=== PATIENT | male | born 1960 | race Caucasian/White ===

== ENCOUNTER 2022-01-01 11:30 | Outpatient (REF) | payer BC, SELFPAY ==
[2022-01-01 12:03] LABS: MANUAL DIFF FLAG NO
[2022-01-01 12:52] LABS: Basophils Absolute Auto 0.1 X10*3/uL (0.0-0.2); Basophils Percent Auto 0.6 % (0-2); Eosinophils Absolute Auto 0.2 X10*3/uL (0.0-0.4); Eosinophils Percent Auto 1.8 % (0-4); Hematocrit 42.9 % (42.0-52.0); Hemoglobin 14.4 g/dl (14.0-18.0); Imm Gran Abs Auto 0.02 X10*3/uL (0.00-0.03); Imm Gran Pct Auto 0.2 % (0.0-0.4); Lymphocytes Absolute Auto 2.5 X10*3/uL (1.2-4.9); Lymphocytes Percent Auto 30.3 % (20-40); Mean Corpuscular HGB Conc 33.6 g/dl (31.0-36.0); Mean Corpuscular Hemoglobin 28.7 pg (27.0-33.0); Mean Corpuscular Volume 85.5 fL (80.0-98.0); Mean Platelet Volume 10.9 fL (9.4-12.4); Monocytes Absolute Auto 0.6 X10*3/uL (0.1-1.2); Monocytes Percent Auto 7.4 % (2-11); Neutrophils Absolute Auto 4.9 x10*3/uL (2.0-8.3); Neutrophils Percent Auto 59.7 % (45-73); Platelet Count 231 X10*3/uL (160-400); Red Blood Count 5.02 X10*6/uL (4.60-5.80); Red Cell Distribution Width 13.3 % (11.0-16.0); White Blood Count 8.2 X10*3/uL (4.8-10.8)
[2022-01-01 13:07] LABS: Estimated Average Glucose 117 mg/dL; Hemoglobin A1C 149.4743 umol/L; Hemoglobin A1c % 5.7 %
[2022-01-01 13:10] LABS: Glucose Fasting 99 mg/dL (60-99)
[2022-01-01 13:39] LABS: Free T4 (Free Thyroxine) 0.92 ng/dL (0.71-1.85); Thyroid Stimulating Hormone 1.33 uIU/mL (0.32-4.0)
[2022-01-01 14:20] LABS: Folate 6.2 ng/mL (> or = 4.0); Vitamin B12 439 pg/mL (200-900)
[2022-01-03 22:27] LABS: Triiodothyronine T3 Total 104 ng/dL (76-181)
== END 2022-01-01 11:31 | disposition home or self-care (01) ==
LOC: HO.LAB 11:30
PROVIDERS: PCP Internal Medicine Medical Oncology; Visit Provider Podiatrist
DX: M79.673 Pain in unspecified foot (principal); R20.8 Other disturbances of skin sensation
CPT/HCPCS: 36415; 82607; 82746; 82947; 83036; 84439; 84443; 84480; 85025

== ENCOUNTER 2022-08-08 11:30 | Day surgery (SDC) | payer BC, SELFPAY ==
[2022-08-08 12:33] VITALS: BMI 29.0
--- NOTE | 2022-08-08 14:03 | MHC.SHP ---
Pre-Procedural Eval Section A Date of Service: 08/08/22 The patient is an INPATIENT: No Changes since office visit: No Cold of Flu in the past 2 weeks, No New Medical Problems, No Changes in Medication and No Patient answered all questions The History & Physical has been completed within 30 days and I have reviewed it.: Yes Section B Chief Complaint: Trigger finger, left middle finger Allergies: Allergies Allergy/AdvReac Type Severity Reaction Status Date / Time No Known Allergies Allergy Verified 06/18/22 14:31 Plan I have reviewed the history and physical and performed a pertinent physical examination on my patient. No changes have occurred unless specified. Time Spent With Patient Time: Total time managing care of this patient today ____ minutes.
--- NOTE | 2022-08-08 14:03 | W.PM.OPN ---
Operative Note Operative Note Date of Service: 08/08/22 Narrative: Operative Note Preop diagnosis: 1. left middle finger Trigger finger Postop diagnosis: 1. left middle finger Trigger finger Procedure: 1. left middle finger A1 candi release Surgeon: Karen Pedraza MD Anesthesia: local block using 1% lidocaine with epinephrine Findings: No locking or catching after A1 candi release EBL: Less than 5 mL Tourniquet time: None Specimens: None Complications: None Disposition: Brought to recovery room in stable condition Plan: Follow-up for 10-14 days for wound check and suture removal Indications: The patient is 61 years old, with a left middle finger trigger finger that has been unresponsive to nonoperative management. The risks and benefits of operative treatment including but not limited to risk of damage to blood vessels, nerves, tendons, infection, persistent pain, persistent symptoms, recurrence or possible need for additional surgery were discussed with the patient and the patient wishes to proceed with surgery. Procedure: Once consent was obtained a local block was performed in the preop area using a combination of 1% lidocaine with epinephrine. The patient was then brought back to the operating suite and placed on the operative table in supine position. The left upper extremity was prepped and draped in a standard surgical fashion. Once assured that we had a good block, a 1.5 cm oblique incision was made centered over the A1 candi of the left middle finger . The incision was made through the skin to the subcutaneous tissues using a #15 blade. Careful dissection was made down to the level of the A1 candi using tenotomy scissors, with care being taken to protect the nearby neurovascular structures. A longitudinal incision was made in the A1 candi 1st using a #15 blade, then using tenotomy scissors under direct visualization. The A1 candi was noted to be thickened. Following our A1 candi release, we no longer saw any locking or catching of the digit with flexion and extension. Once satisfied with our A1 candi release the wound was copiously irrigated with normal saline and hemostasis was obtained with a brief period of local pressure. The skin edges were reapproximated with some 5.0 nylon suture material and a sterile dressing was applied. The patient appears to have tolerated the procedure well and with no complications. All digits were well vascularized at the conclusion of the case.
[2022-08-08 14:25] VITALS: BP 130/83; PULSE 69; RESP 16; TEMP 36.3; O2SAT 98
== END 2022-08-08 14:39 | disposition home or self-care (01) ==
PROVIDERS: PCP Internal Medicine Medical Oncology; Visit Provider Orthopaedic Surgery
PROC: (CPT 26055; principal; 2022-08-08 13:40)
DX: M65.332 Trigger finger, left middle finger (principal)
CPT/HCPCS: 26055; J0171

== ENCOUNTER → 2022-08-21 15:02 | Outpatient (BNVA) | payer BC, SELFPAY | PROVIDERS: PCP Internal Medicine Medical Oncology; Visit Provider Orthopaedic Surgery | DX: Z13.89 Encounter for screening for other disorder (principal) ==

== ENCOUNTER 2022-11-20 06:27 | Outpatient (REF) | payer BC, SELFPAY ==
--- NOTE | ~2022-11-20 | XR_ITS ---
EXAMINATION: XR SHOULDER, RIGHT CLINICAL INFORMATION: Pain COMPARISON: Previous x-ray March 2015 TECHNIQUE: Three views of the right shoulder. FINDINGS: Bone alignment is normal. No fracture or dislocation. Normal glenohumeral joint. Arthritis at the acromioclavicular joint. Normal soft tissues. XR/XR shoulder RT min 2V IMPRESSION: Arthritis at the acromioclavicular joint.
== END 2022-11-20 06:28 | disposition home or self-care (01) ==
LOC: HO.HOSX 06:27
PROVIDERS: Visit Provider Physician Assistant
DX: M75.81 Other shoulder lesions, right shoulder (principal)
CPT/HCPCS: 20610; 73030; J1040

== ENCOUNTER 2022-12-25 13:56 | Outpatient (REF) | payer BC, SELFPAY ==
[2022-12-25 14:15] LABS: MANUAL DIFF FLAG NO
[2022-12-25 14:51] LABS: Basophils Percent Auto 0.4 % (0-2); Eosinophils Percent Auto 0.8 % (0-4); Hematocrit 48.1 % (42.0-52.0); Hemoglobin 16.6 g/dl (14.0-18.0); Imm Gran Abs Auto 0.01 X10*3/uL (0.00-0.03); Imm Gran Pct Auto 0.2 % (0.0-0.4); Lymphocytes Absolute Auto 1.4 X10*3/uL (1.2-4.9); Lymphocytes Percent Auto 27.5 % (20-40); Mean Corpuscular HGB Conc 34.5 g/dl (31.0-36.0); Mean Corpuscular Hemoglobin 28.1 pg (27.0-33.0); Mean Corpuscular Volume 81.4 fL (80.0-98.0); Mean Platelet Volume 11.1 fL (9.4-12.4); Monocytes Absolute Auto 0.5 X10*3/uL (0.1-1.2); Monocytes Percent Auto 10.7 % (2-11); Neutrophils Absolute Auto 3.1 x10*3/uL (2.0-8.3); Neutrophils Percent Auto 60.4 % (45-73); Platelet Count 179 X10*3/uL (160-400); Red Blood Count 5.91 X10*6/uL (4.60-5.80); White Blood Count 5.1 X10*3/uL (4.8-10.8)
[2022-12-25 15:15] LABS: Monotest Negative (Negative)
[2022-12-25 15:41] LABS: Alanine Aminotransferase 60 U/L (0-40); Albumin Level 4.4 g/dL (3.5-5.0); Alkaline Phosphatase 105 U/L (39-117); Anion Gap 16 (12-20); Aspartate Amino Transferase 56 U/L (5-37); Blood Urea Nitrogen 14 mg/dL (9-16); Calcium 9.7 mg/dL (8.4-10.2); Carbon Dioxide 27 mmol/L (22-29); Chloride 97 mmol/L (96-108); Estimated Glomerular Filt Rate > 60; Glucose Random 167 mg/dL (60-115); Potassium 4.2 mmol/L (3.3-5.1); Sodium 136 mmol/L (135-145); Total Protein 7.5 g/dL (6.5-8.0)
[2022-12-27 07:49] LABS: HIV AB/AG Nonreactive (Nonreactive); HIV Num 1 0.06 S/CO (0.00-0.99)
[2022-12-27 09:14] LABS: Rubella IgM Antibody <20.00 AU/mL
[2022-12-31 12:08] LABS: Rubeola IgM (Measles) <1:20 titer
== END 2022-12-25 13:57 | disposition home or self-care (01) ==
LOC: HO.LAB 13:56
PROVIDERS: PCP Internal Medicine Medical Oncology; Visit Provider Internal Medicine Medical Oncology
DX: Z11.4 Encounter for screening for human immunodeficiency virus [HIV] (principal); J02.9 Acute pharyngitis, unspecified; R21 Rash and other nonspecific skin eruption; B34.9 Viral infection, unspecified
CPT/HCPCS: 36415; 80053; 85025; 86308; 86735; 86762; 86765; 87070; 87389

== ENCOUNTER 2023-01-01 11:20 | Outpatient (REF) | payer BC, SELFPAY ==
[2023-01-01 13:16] LABS: MANUAL DIFF FLAG NO
[2023-01-01 13:28] LABS: Basophils Absolute Auto 0.1 X10*3/uL (0.0-0.2); Basophils Percent Auto 0.7 % (0-2); Eosinophils Absolute Auto 0.1 X10*3/uL (0.0-0.4); Eosinophils Percent Auto 1.3 % (0-4); Hematocrit 39.8 % (42.0-52.0); Hemoglobin 13.1 g/dl (14.0-18.0); Imm Gran Abs Auto 0.08 X10*3/uL (0.00-0.03); Imm Gran Pct Auto 0.9 % (0.0-0.4); Lymphocytes Absolute Auto 1.9 X10*3/uL (1.2-4.9); Lymphocytes Percent Auto 21.6 % (20-40); Mean Corpuscular HGB Conc 32.9 g/dl (31.0-36.0); Mean Corpuscular Hemoglobin 28.1 pg (27.0-33.0); Mean Corpuscular Volume 85.4 fL (80.0-98.0); Mean Platelet Volume 9.6 fL (9.4-12.4); Monocytes Absolute Auto 1.2 X10*3/uL (0.1-1.2); Monocytes Percent Auto 13.3 % (2-11); Neutrophils Absolute Auto 5.5 x10*3/uL (2.0-8.3); Neutrophils Percent Auto 62.2 % (45-73); Red Blood Count 4.66 X10*6/uL (4.60-5.80); Red Cell Distribution Width 13.7 % (11.0-16.0); White Blood Count 8.8 X10*3/uL (4.8-10.8)
[2023-01-01 13:40] LABS: Carbon Dioxide 27 mmol/L (22-29)
[2023-01-01 13:43] LABS: Alanine Aminotransferase 37 U/L (0-40); Alkaline Phosphatase 75 U/L (39-117); Anion Gap 11 (12-20); Aspartate Amino Transferase 28 U/L (5-37); Bilirubin Total 0.8 mg/dL (0.0-1.0); Blood Urea Nitrogen 16 mg/dL (9-16); Calcium 9.1 mg/dL (8.4-10.2); Chloride 108 mmol/L (96-108); Estimated Glomerular Filt Rate > 60; Glucose Random 108 mg/dL (60-115); Platelet Count 627 X10*3/uL (160-400); Potassium 4.3 mmol/L (3.3-5.1); Sodium 142 mmol/L (135-145); Total Protein 7.1 g/dL (6.5-8.0)
[2023-01-01 13:55] LABS: Lactate Dehydrogenase 260 U/L (118-273); Syphilis Screen Nonreactive (Nonreactive)
[2023-01-01 14:14] LABS: Erythrocyte Sedimentation Rate 15 MM/HR (0-15)
[2023-01-09 02:19] LABS: Lyme Abs Screen <0.90 index
== END 2023-01-01 11:21 | disposition home or self-care (01) ==
LOC: HO.10HDL 11:20
PROVIDERS: Visit Provider Internal Medicine Medical Oncology
DX: R61 Generalized hyperhidrosis (principal); M79.10 Myalgia, unspecified site
CPT/HCPCS: 36415; 80053; 82550; 83615; 85025; 85652; 86617; 86618; 86780

== ENCOUNTER → 2023-01-07 12:50 | Outpatient (BNVA) | payer BC, SELFPAY | PROVIDERS: PCP Internal Medicine Medical Oncology; Visit Provider Orthopaedic Surgery ==

== ENCOUNTER 2023-01-10 08:14 | Outpatient (REF) | payer BC, SELFPAY ==
[2023-01-10 09:20] LABS: Erythrocyte Sedimentation Rate 10 MM/HR (0-15)
[2023-01-10 09:37] LABS: Thyroid Stimulating Hormone 2.11 uIU/mL (0.32-4.0); Vitamin D 25-OH Total 19.9 ng/mL (>30)
[2023-01-10 10:26] LABS: Cortisol Random 11.2 ug/dL
[2023-01-13 17:44] LABS: Anti Nuclear Antibody Screen NEGATIVE (NEGATIVE)
== END 2023-01-10 08:15 | disposition home or self-care (01) ==
LOC: HO.LAB 08:14
PROVIDERS: PCP Internal Medicine Medical Oncology; Visit Provider Internal Medicine Medical Oncology
DX: R61 Generalized hyperhidrosis (principal); M79.10 Myalgia, unspecified site; R53.83 Other fatigue
CPT/HCPCS: 36415; 82306; 82533; 84439; 84443; 85652; 86038

== ENCOUNTER 2023-01-23 09:10 | Day surgery (SDC) | payer BC, SELFPAY ==
[2023-01-23 09:27] VITALS: BP 128/80; PULSE 74; RESP 16; TEMP 36.3; O2SAT 97; BMI 28.7
--- NOTE | 2023-01-23 11:32 | MHC.SHP ---
Pre-Procedural Eval Section A Date of Service: 01/23/23 The patient is an INPATIENT: No Changes since office visit: No Cold of Flu in the past 2 weeks, No New Medical Problems, No Changes in Medication and No Patient answered all questions The History & Physical has been completed within 30 days and I have reviewed it.: Yes Section B Chief Complaint: Trigger finger, right middle finger Allergies: Allergies Allergy/AdvReac Type Severity Reaction Status Date / Time No Known Allergies Allergy Verified 01/07/23 13:20 Plan I have reviewed the history and physical and performed a pertinent physical examination on my patient. No changes have occurred unless specified. Time Spent With Patient Time: Total time managing care of this patient today ____ minutes.
--- NOTE | 2023-01-23 11:33 | W.PM.OPN ---
Operative Note Operative Note Date of Service: 01/23/23 Narrative: Operative Note Preop diagnosis: 1. Right middle finger Trigger finger Postop diagnosis: 1. Right middle finger Trigger finger Procedure: 1. Right middle finger A1 candi release Surgeon: Karen Pedraza MD Anesthesia: local block using 1% lidocaine with epinephrine Findings: No locking or catching of the right middle finger after A1 candi release. However, he did have some locking of the right ring finger. EBL: Less than 5 mL Tourniquet time: None Specimens: None Complications: None Disposition: Brought to recovery room in stable condition Plan: Follow-up for 10-14 days for wound check and suture removal Indications: The patient is 62 years old, with a right middle finger trigger finger that has been unresponsive to nonoperative management. The risks and benefits of operative treatment including but not limited to risk of damage to blood vessels, nerves, tendons, infection, persistent pain, persistent symptoms, recurrence or possible need for additional surgery were discussed with the patient and the patient wishes to proceed with surgery. Procedure: Once consent was obtained a local block was performed in the preop area using a combination of 1% lidocaine with epinephrine. The patient was then brought back to the operating suite and placed on the operative table in supine position. The right upper extremity was prepped and draped in a standard surgical fashion. Once assured that we had a good block, a 1.5 cm oblique incision was made centered over the A1 candi of the right middle finger . The incision was made through the skin to the subcutaneous tissues using a #15 blade. Careful dissection was made down to the level of the A1 candi using tenotomy scissors, with care being taken to protect the nearby neurovascular structures. A longitudinal incision was made in the A1 candi 1st using a #15 blade, then using tenotomy scissors under direct visualization. The A1 candi was noted to be thickened. Following our A1 candi release, we no longer saw any locking or catching of the digit with flexion and extension. Once satisfied with our A1 candi release the wound was copiously irrigated with normal saline and hemostasis was obtained with a brief period of local pressure. The skin edges were reapproximated with some 5.0 nylon suture material and a sterile dressing was applied. The patient appears to have tolerated the procedure well and with no complications. All digits were well vascularized at the conclusion of the case.
[2023-01-23 12:05] VITALS: BP 124/77; PULSE 68; RESP 16; O2SAT 98
== END 2023-01-23 12:08 | disposition home or self-care (01) ==
PROVIDERS: PCP Internal Medicine Medical Oncology; Visit Provider Orthopaedic Surgery
PROC: (CPT 26055; principal; 2023-01-23 10:40)
DX: M65.331 Trigger finger, right middle finger (principal)
CPT/HCPCS: 26055; J0171; J2795

== ENCOUNTER 2023-02-05 12:40 | Outpatient (AMB) | payer BC, SELFPAY ==
--- NOTE | 2023-02-05 12:48 | A.OFFVIS_ITS ---
Intake Intake Visit Reasons: PO R MF Trigger Release 01/23/23 AR Intake Note: Russell 62 yr old male resents today for his Post Op Right Middle Finger Trigger Release 01/23/23. States his finger no longer locks. Sutures removed and steri strips applied. Allergies No Known Allergies Allergy (Verified 02/05/23 12:48) HPI PO R MF Trigger Release 01/23/23 AR HPI Details Russell is a 61 year old right hand dominant man who presents S/P right middle trigger finger release, DOS: 01/23/23. He has a Hx of left middle finger trigger release, DOS: 08/08/22, with good resolution of his symptoms. He says he is doing well and he no longer has any locking or catching. He has some finger stiffness and has been working on ROM at home. He works in a factory with metal. He says both of his trigger fingers are workman's comp. [facility] Social History Patient Tobacco Use Status: Current everyday Tobacco user Tobacco use type: Cigarette Cigarettes Per Day: 10 Current occupational status: employed Current occupation: fabrication/ rt hand Review of Systems Const All systems reviewed & are unremarkable except as noted in HPI and below Physical Exam Const General: no acute distress and alert Orientation/consciousness: patient oriented x3 Neuro General: patient oriented x3 Extrem Other: The patient was alert oriented and in no acute distress The incision is healing well with no erythema drainage or evidence of infection. Sutures removed and Steri-Strips applied He can make a fist and extend all his digits No longer has any locking or catching Sensation is intact Cap refill is brisk Psych Appearance: grossly normal Affect: normal affect Attitude: cooperative Assessment & Plan Assessment & Plan (1) Trigger finger, left middle finger: Code(s): M65.332 - Trigger finger, left middle finger (2) Trigger finger, right middle finger: Code(s): M65.331 - Trigger finger, right middle finger Plan Assessment & Plan: 1. Right middle trigger finger, S/P release DOS: 01/23/23 He has claimed this as workman's comp The patient appears to be doing well post-operatively I educated him about the post-operative course I discussed activity modifications, he is to lift nothing heavier than a cellphone for the next two weeks He will perform gentle ROM exercises at home He should avoid any underwater activities for the next 5 days He should gently massage about the incision site to reduce the risk of hypersensitivity He was given a note to remain out of work until 02/24/23, when he will return to full duty He can follow up prn 2. Left middle trigger finger, S/P release DOS: 08/08/22 With good resolution of his symptoms He has claimed this as workman's comp Scribed for Karen Pedraza MD by Jewel Davis, medical affairs director, on 02/05/23 at 1:05 PM, EST. Coding Level of Care Code Global (25909) Diagnoses Trigger finger, left middle finger M65.332 Trigger finger, right middle finger M65.331
== END 2023-02-05 13:20 | disposition home or self-care (01) ==
PROVIDERS: PCP Internal Medicine Medical Oncology; Visit Provider Orthopaedic Surgery
DX: M65.332 Trigger finger, left middle finger (principal); M65.331 Trigger finger, right middle finger
CPT/HCPCS: 99024

== ENCOUNTER → 2023-02-05 12:40 | Outpatient (BNVA) | payer BC, SELFPAY | PROVIDERS: PCP Internal Medicine Medical Oncology; Visit Provider Orthopaedic Surgery ==

== ENCOUNTER 2023-05-23 11:37 | Outpatient (REF) | payer BC, SELFPAY ==
--- NOTE | ~2023-05-23 | XR_ITS ---
EXAMINATION: XR CHEST XR RIBS, RIGHT CLINICAL INFORMATION: Chest pain. COMPARISON: None available. TECHNIQUE: PA and lateral views of the chest were obtained. Right rib series. FINDINGS: The lungs are moderately expanded. No focal consolidation. No pleural effusion. Cardiac silhouette is within normal limits. No displaced right-sided rib fracture. XR/XR ribs RT 2V IMPRESSION: No acute abnormality.
--- NOTE | ~2023-05-23 | XR_ITS ---
EXAMINATION: XR CHEST XR RIBS, RIGHT CLINICAL INFORMATION: Chest pain. COMPARISON: None available. TECHNIQUE: PA and lateral views of the chest were obtained. Right rib series. FINDINGS: The lungs are moderately expanded. No focal consolidation. No pleural effusion. Cardiac silhouette is within normal limits. No displaced right-sided rib fracture. XR/XR chest 2V IMPRESSION: No acute abnormality.
== END 2023-05-23 11:38 | disposition home or self-care (01) ==
LOC: HO.XRAY 11:37
PROVIDERS: PCP Internal Medicine Medical Oncology; Visit Provider Internal Medicine Medical Oncology
DX: R07.9 Chest pain, unspecified (principal); R07.81 Pleurodynia
CPT/HCPCS: 71046; 71100

== ENCOUNTER 2023-11-11 08:04 | Outpatient (REF) | payer BC, SELFPAY ==
--- NOTE | 2023-11-11 08:09 | EMG_ITS ---
Bilateral tibial and peroneal motor studies were performed. Bilateral superficial peroneal, sural and median and lateral plantar sensory studies were performed. Tibial H reflexes were obtained and needle examination was performed. 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 MD ERINN Villa/AZAM / [id number]
== END 2023-11-11 08:05 | disposition home or self-care (01) ==
LOC: HO.NEURO 08:04
PROVIDERS: PCP Internal Medicine Medical Oncology; Visit Provider Internal Medicine Medical Oncology
DX: G60.9 Hereditary and idiopathic neuropathy, unspecified (principal); G62.9 Polyneuropathy, unspecified
CPT/HCPCS: 95886; 95913

== ENCOUNTER 2023-12-16 15:21 | Outpatient (REF) | payer BC, SELFPAY ==
--- NOTE | ~2023-12-16 | US_ITS ---
EXAMINATION: US VENOUS ULTRASOUND WITH DOPPLER LOWER EXTREMITY, RIGHT CLINICAL INFORMATION: Calf pain COMPARISON: None available. TECHNIQUE: Ultrasound of the deep veins is performed from the hip to the calf with compression sonography and color and pulse Doppler assessment. Spectral analysis with color-flow imaging is performed. FINDINGS: There is normal venous compression and respiratory variation. The visualized common femoral vein, superficial femoral vein, profunda femoral vein, popliteal vein, and the posterior tibial and peroneal veins no evidence of deep venous thrombosis. The contralateral common femoral vein demonstrates normal respiratory variation. US/US venous duplex LE RT IMPRESSION: No DVT demonstrated in the right lower extremity.
== END 2023-12-16 15:22 | disposition home or self-care (01) ==
LOC: HO.US 15:21
PROVIDERS: PCP Internal Medicine Medical Oncology; Visit Provider Internal Medicine Medical Oncology
DX: M79.661 Pain in right lower leg (principal)
CPT/HCPCS: 93971

== ENCOUNTER 2024-05-25 06:51 | Outpatient (REF) | payer OTHER, SELFPAY ==
[2024-05-25 07:12] LABS: MANUAL DIFF FLAG NO
[2024-05-25 07:47] LABS: Basophils Absolute Auto 0.1 X10*3/uL (0.0-0.2); Basophils Percent Auto 0.5 % (0-2); Eosinophils Absolute Auto 0.3 X10*3/uL (0.0-0.4); Eosinophils Percent Auto 2.7 % (0-4); Hematocrit 42.9 % (42.0-52.0); Hemoglobin 14.5 g/dl (14.0-18.0); Imm Gran Abs Auto 0.03 X10*3/uL (0.00-0.03); Imm Gran Pct Auto 0.3 % (0.0-0.4); Lymphocytes Absolute Auto 2.4 X10*3/uL (1.2-4.9); Lymphocytes Percent Auto 26.2 % (20-40); Mean Corpuscular HGB Conc 33.8 g/dl (31.0-36.0); Mean Corpuscular Hemoglobin 29.1 pg (27.0-33.0); Mean Platelet Volume 10.6 fL (9.4-12.4); Monocytes Absolute Auto 0.8 X10*3/uL (0.1-1.2); Monocytes Percent Auto 8.5 % (2-11); Neutrophils Absolute Auto 5.6 x10*3/uL (2.0-8.3); Neutrophils Percent Auto 61.8 % (45-73); Platelet Count 234 X10*3/uL (160-400); Red Blood Count 4.99 X10*6/uL (4.60-5.80); Red Cell Distribution Width 13.1 % (11.0-16.0); White Blood Count 9.1 X10*3/uL (4.8-10.8)
[2024-05-25 08:20] LABS: Alanine Aminotransferase 23 U/L (0-40); Albumin Level 4.4 g/dL (3.5-5.0); Alkaline Phosphatase 91 U/L (39-117); Anion Gap 12 (12-20); Aspartate Amino Transferase 28 U/L (5-37); Bilirubin Total 1.3 mg/dL (0.0-1.0); Blood Urea Nitrogen 16 mg/dL (9-16); Calcium 9.3 mg/dL (8.4-10.2); Carbon Dioxide 27 mmol/L (22-29); Chloride 105 mmol/L (96-108); Cholesterol 237 mg/dL (<200); Estimated Glomerular Filt Rate > 60; Glucose Fasting 128 mg/dL (60-99); HDL Cholesterol 34 mg/dL (>40); LDL Cholesterol Calculated 175 mg/dL (<100); Potassium 3.7 mmol/L (3.3-5.1); Sodium 140 mmol/L (135-145); Total Protein 7.5 g/dL (6.5-8.0); Triglycerides 142 mg/dL (<150)
[2024-05-25 08:33] LABS: Prostate Specific Antigen 2.06 ng/mL (<0.05-4.0)
== END 2024-05-25 06:52 | disposition home or self-care (01) ==
LOC: HO.LAB 06:51
PROVIDERS: PCP Internal Medicine Medical Oncology; Visit Provider Internal Medicine Medical Oncology
DX: Z00.00 Encounter for general adult medical examination without abnormal findings (principal); N40.0 Benign prostatic hyperplasia without lower urinary tract symptoms; Z12.5 Encounter for screening for malignant neoplasm of prostate
CPT/HCPCS: 36415; 80053; 80061; 84153; 85025

== ENCOUNTER 2024-06-09 07:52 | Outpatient (REF) | payer OTHER, SELFPAY | END 2024-06-09 07:53 | disposition home or self-care (01) | LOC: HO.HOSX 07:52 | PROVIDERS: Visit Provider Physician Assistant | DX: M25.512 Pain in left shoulder (principal) | CPT/HCPCS: 73030 ==

== ENCOUNTER 2024-06-09 11:28 | Outpatient (AMB) | payer OTHER, SELFPAY ==
--- NOTE | 2024-06-09 11:36 | MHC.OFFVIS ---
Intake Visit Reasons: OV New problem Left shoulder pain Intake Note: Russell a 63 year old male who presents today for an evaluation of left shoulder pain. Patient reports his pain has been present for a couple of years. Denies injury. No previous tx. He has intermittent pain and clicking with ROM. States his pain increases with ROM. Finds no relief with ibuprofen or Tylenol. Hx of right shoulder injection in the past that helped for only a couple of weeks. Allergies No Known Allergies Allergy (Verified 06/09/24 11:39) Medication List - Last Reviewed 06/09/24 by [facility] Burns duloxetine 20 mg PO BID HPI HPI OV New problem Left shoulder pain: Details: 63-year-old gentleman presents to the office today for left shoulder pain. He states he has had pain for several months and is worse with daily activities reaching and carrying objects. He did have similar pain in the right shoulder which I previously injected. He had little relief with this injection. He has had no current treatment to the left shoulder. [facility] Social History Patient Tobacco Use Status: Current everyday Tobacco user Tobacco use type: Cigarette Cigarettes Per Day: 10 Current occupational status: employed Current occupation: fabrication/ rt hand Review of Systems Const All systems reviewed & are unremarkable except as noted in HPI and below Physical Exam Const General: cooperative and no acute distress Orientation/consciousness: patient oriented x3 Resp Effort & Inspection: normal respiratory effort and able to speak in complete sentences Cardio Peripheral pulses: Peripheral pulses 2+ throughout Neuro General: patient oriented x3 Extrem Other: Left shoulder normal to inspection. Tenderness over the bicipital groove and along deltoid region of the shoulder. FF to 175, ER to 90, IR to S1. 5/5 RTC strength, negative manzanares, cross body abduction. NVI. Results Reviewed Results Reviewed: X-rays of the left shoulder obtained in the office today are significant for mild AC joint arthritis. Assessment & Plan Assessment & Plan (1) Arthritis of left acromioclavicular joint: Code(s): M19.012 - Primary osteoarthritis, left shoulder Category: Medical Plan: We discussed options which include PT, NSAIDs and injections. She will defer on the injection today and proceed with PT and NSAIDs. If symptoms persist she will contact me for an injection, otherwise, prn. Orders: Orders XR shoulder LT min 2V Today M25.512 - Pain in left shoulder Medications: New naproxen 500 mg PO BID 60 tabs 3RF 30 days S93.409A - Sprain of unspecified ligament of unspecified ankle, initial encounter Coding Level of Care Code Est Pt Level 3 (41723) Complex EM visit Add On G2211 Diagnoses Arthritis of left acromioclavicular joint M19.012
== END 2024-06-09 11:51 | disposition home or self-care (01) ==
PROVIDERS: PCP Internal Medicine Medical Oncology; Visit Provider Physician Assistant
DX: M19.012 Primary osteoarthritis, left shoulder (principal)
CPT/HCPCS: 99213

== ENCOUNTER 2025-02-24 17:40 | Emergency (ER) | payer OTHER, SELFPAY ==
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
[2025-02-24 18:00] VITALS: BP 114/70; PULSE 103; RESP 16; TEMP 37.2; O2SAT 96; BMI 29.3
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
--- NOTE | 2025-02-24 18:04 | ECG_ITS ---
Test Reason : CP Blood Pressure : */* mmHG Vent. Rate : 88 BPM Atrial Rate : 88 BPM P-R Int : 154 ms QRS Dur : 98 ms QT Int : 338 ms P-R-T Axes : 84 104 62 degrees QTcB Int : 408 ms Normal sinus rhythm Rightward axis Borderline ECG No previous ECGs available Referred By: Mae Patel Electronically Signed By: RANULFO WHELAN
--- OUTSIDE RECORDS SUMMARY | 2025-02-24 20:32 | XMS_ITS | Patient Health Record ---
Author Organization [facility] Address [address] [place] [address] Care Team Providers Care Construction Management Instructor Name Role Phone Noe Thurston Primary Care Provider Kirk Sutton [phone] Reason For Referral No Information Social History Tobacco Use: Social History Observation Description Date Details (start date - stop date) Current Smoker NA - NA Tobacco Use/Smoking Question Answer Notes Patient is a current smoker How often do you smoke cigarettes? every day How many cigarettes a day do you smoke? 6-10 How soon after you wake up do you smoke your fir st cigarette? 6-30 minutes Are you interested in quitting? Not ready to arian t Alcohol Screen Question Answer Notes Did you have a drink contain ing alcohol in the past year? Yes How often did you have a dri nk containing alcohol in the past year? Monthly or less (1 point) How many drinks did you have on a typical day when you were drinking in the past year? 5 or 6 drinks (2 points) How often did you have 6 or more drinks on one occasion in the past year? Less than monthly (1 point) Points 4 Interpretation Positive Section Notes: Smoker 1/2 ppd; no sig alcoh ol Problems Problem Type SNOMED Code ICD Code Onset Dates Problem Status W/U Status Risk Notes Problem 062810052 Encounter for screening for malignant neoplasm of colon (Z12.11) Active confirmed Problem 298053346 Preprocedural examination (Z01.818) Active confirmed Problem 053956516 Chronic hepatiti s C without hepatic coma (B18.2) Active confirmed Plan Of Treatment Future Test Test Name Order Date COLONOSCOPY 04/23/2017 Insurance Providers Payer Name Payer Address Payer Phone Subscriber Number Group Number Insured Name Patient Relationship to Insured Coverage Start Date Coverage End Date [facility] [employer] [address] [place] [address] [phone] [id number] [address] Self - patient is the insured Medical (General) History Medical History History ICD Code Denies AK,DM,CVA,Lung disease,renal dise ase Hepatitis C Genotype 1--[place] [address] Perez with reported success--liver bx with Gr1/4 and Stage I/IV--treated with a regimen of ribavirin, Pegasys-interferon, and Incivek--Hep C viral load was nondetectable in 04/2017
--- OUTSIDE RECORDS SUMMARY | 2025-02-24 20:32 | XMS_ITS | Clinical Summary ---
Author Organization [employer] Address [address] [place] [address] Care Team Providers Care Systems Security Consultant Name Role Phone Unavailable Primary Care Provider Unavailabl e Immunizations Immunization Administration Dates Next Due Moderna Covid-19 Vaccine 6+ Bivalent 06/28/2022 Social History Tobacco Use Types Packs/Day Years Used Date Smoking Tobacco: Never Assessed Sex and Gender Information Value Date Recorded Sex Assigned at Male 05/20/2022 10:18 AM EDT Legal Sex Male 10:18 AM EDT Gender Identity Male 05/20/2022 10:18 AM EDT Sexual Orientation Choose not to disclose 2021 10:18 AM EDT Plan of Treatment Health Maintenance Due Date Last Done Comments CT Colonography 1961 Colonoscopy 1961 Colorectal Cancer Screening 1961 Depression Screening 1961 FIT DNA/Cologuard 1961 FIT 1961 FOBT 1961 HIV Screening 1961 Lipid Panel 1961 SDOH Screening 1961 Sigmoidoscopy 1961 Disability Screening 1961 Alcohol/Substance Use Screening 1973 Tobacco Screening 1973 Hepatitis C Screening 11/21/1979 DTaP/Tdap/Td Vaccines (1 - Tdap) 03/01/2009 02/28/2009 Pneumococcal Vaccine: 50+ Years (1 of 1 - PCV) 11/21/2011 Zoster Vaccines (1 of 2) 11/21/2011 COVID-19 Vaccine (5 - season) 2024 06/28/2022, 07/31/2021, 10/03/2020, Additional history exists Influenza Vaccine (#1) 2025 05/14/2016 RSV Patients and Patients Aged 60 years or older (1 - 1-dose 75+ series) 2036 HIB Vaccines Aged Out No longer eligi ble based on patient's age to complete this topic HPV Vaccines Aged Out No longer eligi ble based on patient's age to complete this topic Hepatitis A Vaccines Aged Out No long er eligible based on patient's age to complete this topic Hepatitis B Vaccines Aged Out No long er eligible based on patient's age to complete this topic IPV Vaccines Aged Out No longer eligi ble based on patient's age to complete this topic Meningococcal B Vaccine Aged Out No l onger eligible based on patient's age to complete this topic Meningococcal Vaccine Aged Out No michael hari eligible based on patient's age to complete this topic RSV under 20 months Aged Out No longe r eligible based on patient's age to complete this topic Rotavirus Vaccines Aged Out No longer eligible based on patient's age to complete this topic Insurance HMO
--- OUTSIDE RECORDS SUMMARY | 2025-02-24 20:32 | XMS_ITS | Clinical Summary ---
Author Organization [facility] Address [address] [place] [phone] Phone Care Team Providers Care Combination Machine Tool Operator Name Role Phone Kirk Talley MD Primary Care Provider [phone]- [phone] Allergies No known active allergies Medications ketorolac (TORADOL) 10 mg tablet Take 1 tablet (10 mg total) by mouth every 6 (six) hours as needed for pain (specific location in comments). 20 tablet 04/09/2022 Active ofloxacin (OCUFLOX) 0.3 % ophthalmic solution Place 1 drop into the left eye 4 (four) times a day. 5 mL 05/11/2022 Active Active Problems No known active problems Social History Tobacco Use Types Packs/Day Years Used Date Smoking Tobacco: Never Assessed Education Answer Date Recorded Are you interested in more education? Not on eliza e 11/16/2022 Are you concerned about learning? Not on file 11/16/2022 No 11/16/2022 No 11/16/2022 Digital Access Answer Date Recorded No 12/15/2022 No 12/15/2022 Reliable internet access at home? Not on file 12/15/2022 Device with a working camera? Not on file Sex and Gender Information Value Date Recorded Sex Assigned at Male 04/09/2022 5:55 PM EDT Legal Sex Male 5:06 PM EDT Gender Identity Male 04/09/2022 5:55 PM EDT Sexual Orientation Not on file Last Filed Vital Signs Vital Sign Reading Time Taken Comments Blood Pressure 130/86 05/11/2022 10:20 AM EDT Pulse 61 05/11/2022 10:20 AM EDT Temperature 36.4 C (97.5 F) 05/11/2022 10:20 AM EDT Respiratory Rate 20 05/11/2022 10:20 AM EDT Oxygen Saturation 99% 05/11/2022 10:20 AM EDT Inhaled Oxygen Concentration - - Weight 81.6 kg (180 lb) 04/09/2022 5:55 PM EDT Height 167.6 cm (5' 6 ) 04/09/2022 5:55 PM EDT Body Mass Index 29.05 04/09/2022 5:55 PM EDT Plan of Treatment Health Maintenance Due Date Last Done Comments Adult Td,Tdap Booster 1961 LIPID PANEL 1961 DEPRESSION SCREENING 1973 SMOKING Hx and SMOKELESS TOB ACCO SCREENING 1974 HEPATITIS C SCREENING 11/21/1979 HIV ONE-TIME SCREENING (18-6 5 YEARS) 11/21/1979 SCREENING FOR DIABETES 1996 COLOGUARD 2006 COLONOSCOPY 2006 COLORECTAL CANCER SCREENING 2006 FIT TEST 2006 FOBT 2006 SIGMOIDOSCOPY 2006 VIRTUAL COLONOSCOPY 2006 PNEUMOCOCCAL VACCINES (50+ y ears) (1 of 1 - PCV) 11/21/2011 ZOSTER VACCINES (1 of 2) 11/21/2011 COVID-19 VACCINE ( - 2023-2 5 season) 2024 RSV VACCINE (1 - 1-dose 75+ series) 2036 HEPATITIS A VACCINES Aged Out No long er eligible based on patient's age to complete this topic HIB VACCINES Aged Out No longer eligi ble based on patient's age to complete this topic MENINGOCOCCAL VACCINES (ACWY) Aged Out No longer eligible based on patient's age to complete this topic MENINGOCOCCAL VACCINES (B) Aged Out N o longer eligible based on patient's age to complete this topic Medical Devices Not on file Insurance [facility] LIMITED NETWORK HMO [employer] LIMITED NETWORK HMO [employer] LIMITED NETWORK HMO BLUE CROSS [employer] LIMITED NETWORK HMO [employer] LIMITED NETWORK HMO [employer] LIMITED NETWORK HMO NullPointer [employer] LIMITED NETWORK HMO NullPointer [facility] [employer] NETWORK HMO Care Teams Combination Machine Tool Operator Relationship Specialty Start Date End Date Kirk Talley MD [address] [place] [id number] PCP - General 04/09/22 Additional Source Comments The information contained in this document represents components of the legal health record. It is not the complete legal health record.[facility]
[2025-02-24 21:15] VITALS: BP 117/77; PULSE 87; RESP 16; TEMP 36.9; O2SAT 100
[2025-02-24 21:20] VITALS: BP 117/77; PULSE 87; RESP 16; TEMP 36.9; O2SAT 100
== END 2025-02-24 21:20 | disposition home or self-care (01) ==
PROVIDERS: Emergency Provider Emergency Medicine; PCP Internal Medicine Medical Oncology
DX: R07.89 Other chest pain (principal); M79.661 Pain in right lower leg; V49.88XA Car occupant (driver) (passenger) injured in other specified transport accidents, initial encounter; Y92.488 Other paved roadways as the place of occurrence of the external cause; Y93.89 Activity, other specified; Y99.8 Other external cause status
CPT/HCPCS: 70450; 71046; 73590; 93005; 96372; 99284; J1885

== ENCOUNTER → 2025-02-24 18:04 | Outpatient (BNV) | payer SELFPAY | PROVIDERS: Emergency Provider Emergency Medicine; PCP Internal Medicine Medical Oncology; Visit Provider Internal Medicine | DX: R07.9 Chest pain, unspecified (principal) | CPT/HCPCS: 93010 ==

== ENCOUNTER → 2025-02-24 18:04 | Outpatient (BNV) | payer OTHER, SELFPAY | PROVIDERS: PCP Internal Medicine Medical Oncology; Visit Provider Specialist | DX: R51.9 Headache, unspecified (principal); R07.9 Chest pain, unspecified; M79.661 Pain in right lower leg; V89.2XXA Person injured in unspecified motor-vehicle accident, traffic, initial encounter | CPT/HCPCS: 70450; 71046; 73590 ==

== ENCOUNTER 2025-07-12 11:34 | Outpatient (AMB) | payer OTHER, SELFPAY ==
--- OUTSIDE RECORDS SUMMARY | 2024-02-27 09:30 | XMS_ITS ---
Author Organization Kirk Talley III, MD Address [address] [place] [address] Care Team Providers Care Panel Builder Name Role Phone Dr. Kirk Talley III Primary Care Provider [phone] Allergies Allergen (clinical drug ingredient) Drug/Non Drug Allergy documented on EMR Reaction Allergy Type Onset Date Status No Known Drug Allergy Unknown Drug Allergy Active REASON FOR VISIT peripheral neuropathy, Tobacco dependence, Right anterior shoulder, Benign prostatic hypertrophy Medications Medication SIG (Take, Route, Fr equency, Duration) Notes Start Date End Date Status Pregabalin 75 MG 1 capsule in the serena ike 1 to 3 hours before bedtime Orally Once a day for 30 days 02/27/2024 09/23/2024 Active Tadalafil 10 MG TAKE 1 TABLET BY SELMA TH EVERY DAY NEEDED Active Gabapentin 600 MG 1 tablet Orally thre e times a day 11/18/2023 Active DULoxetine HCl 20 MG TAKE 1 CAPSULE BY M OUT TWICE A DAY FOR 30 DAYS Oral Active Social History Tobacco Use: Social History Observation Description Date Details (start date - stop date) Current Smoker NA - NA Sex Assigned At : Social History Observation Description Sex Assigned At Male Tobacco Use/Smoking Question Answer Notes Patient is a current smoker How often do you smoke cigarettes? every day How many cigarettes a day do you smoke? 6-10 How soon after you wake up d o you smoke your first cigarette? 31-60 minutes Are you interested in quitting? Not ready to arian t Additional Findings: Tobacco User Light cigarett e smoker ((1-9 cigs/day) Vital Signs Temperature 97.6 degrees Fahrenheit 02/27/20 24 Blood pressure systolic 130 mm Hg 02/27/20 24 Blood pressure diastolic 68 mm Hg 024 Heart Rate 89 /min 02/27/2024 Height 66 in 02/27/2024 Weight 187 lbs 02/27/2024 BMI 30.18 kg/m2 02/27/2024 Encounters Encounter Location Date Provider Diagnosis Kirk Talley III, MD [address] [place] [address] [address] [place], [place] [id number] 02/27/2024 Kirk Talley Idiopathic periphera l neuropathy G60.9 ; Tobacco dependence F17.200 ; Obesity (BMI 30-39.9) E66.9 and Right anterior shoulder pain M25.511 Assessments Encounter Date Diagnosis (ICD Code) Assessment Notes Treatment Notes Treatment Clinical Notes 02/27/2024 Idiopathic peripheral neuropathy (ICD-10 - G60.9) He says he has had no benefit from the gabapentin or duloxetine.. I will see what the neurologist recommends tomorrow morning. There are several medications that could be tried .I have prescribed pregabalin. 02/27/2024 Tobacco dependence (ICD-10 - F17.200) I discussed with him the health consequences are continued smoking. I recommended he stop smoking immediately. I have offered to refer him to smoke [place], O2 the smoking cessation programs at the local hospital. He has agreed to consider this. 02/27/2024 Obesity (BMI 30-39.9) (ICD-10 - E66.9) He has gained 6 pounds since his last visit. We discussed diet and nutrition. We made a plan to lose weight at a rate of one half of a pound per week over body mass index is in the normal range. 02/27/2024 Right anterior shoulder pain (ICD-10 - M25.511) Continue under the care of the rehabilitation physician and orthopedic surgeon. Plan Of Treatment Medication Medication Name Sig Start Date Stop Date Notes Pregabalin 75 MG 1 capsule in the serena ike 1 to 3 hours before bedtime Orally Once a day for 30 days 02/27/2024 09/23/2024 Tadalafil 10 MG TAKE 1 TABLET BY SELMA TH EVERY DAY NEEDED Gabapentin 600 MG 1 tablet Orally three times a day 2023 DULoxetine HCl 20 MG TAKE 1 CAPSULE BY M OUTH TWICE A DAY FOR 30 DAYS Oral Next Appt Details Follow Up: 3 Weeks, Reason: ov Provider Name:Kirk Talley , 07/27/2025 02:45:00 PM, [address] [place] [address] [address], [place], [address], Progress Notes * Zoe DCOB: 2 (63 yo M)Acc No.[id number]:02/27/2024 Progress Notes Patient: Russell Lang Provider: Dianne Talley MD :1960 A ge:63 Y S ex:Male Date:02/27/2024 Address:[address] [place] [id number] Subjective: * Chief Complaints: * P eripheral neuropathyTobacco dependenceRight anterior shoulderBenign prostatic hypertrophy * HPI: C OVID-19 Screening: He returns to the office for ongoing management of his peripheral neuropathy. He has been treated with gabapentin without any efficacy. He has also been on duloxetine with the same result. I am giving him a trial ambrocio pre-gambling. He has an appointment in the near future with neurology. He has had no change in his symptoms of burning in the lower extremities. Continues to smoke half a package of cigarettes per day. The right anterior shoulder pain is present only with lifting or elevation. He rises from sleep once or twice a night to urinate. We discussed modifications to his lifestyle that might reduce nocturia. Questions H ave you experienced fever, chills, cough, sore throat, shortness of breath, difficulty breathing, muscle aches, loss of taste or smell? N o H ave you been exposed to the virus within the last 10 days? N o H ave you travelled internationally in the last 10 days? N o H ave you been exposed to COVID-19 in the past? N o * ROS: G eneral/Constitutional: pain B oth legs below the knees, Right shoulder with elevation, otherwise only normal aches and pains. C hills d enies. F atigue a dmits. F ever d enies. E NT: Decreased hearing d enies. R espiratory: Cough n on-productive. C ardiovascular: Chest pain with exertion d enies. D yspnea on exertion?denies. S hortness of breath d enies. G astrointestinal: Constipation o ccasional. D ecreased appetite d enies. D iarrhea d enies. H eartburn d enies. N ausea d enies. R ectal bleeding d enies. V omiting d enies. H ematology: bruising d enies. p etechiae d enies. S wollen glands n one have been noted. G enitourinary: Frequent urination o nce a night. M usculoskeletal: Muscle aches d enies. P ainful joints d enies. S ciatica d enies. W eakness d enies. S kin: Itching d enies. R brittani d enies. S kin lesion(s)?denies. N eurologic: Difficulty speaking d enies. D izziness d enies.?Headache d enies. L ow back pain d enies. P sychiatric: Depressed mood w hich is mild. * Medical History: * Surgical History: c olonoscopy 05/2017Tendon repair Dupuytren's contracture left palm 2022 * Hospitalization/Major Diagno stic Procedure: N o Hospitalization History. * Family History: F ather: alive 83 yrs, No information available. M other: alive 84 yrs, Diabetes mellitus, diagnosed with DM. M aternal Grand Father: diagnosed with Cancer. M aternal uncle: diagnosed with Cancer. 2 brother(s) - healthy. 1 daughter(s) - healthy. . healthy. His father is alive but he has no information about his health. His mother is living with diabetes mellitus. His mother's father and brother both have a diagnosis of cancer, but no other information is available. His siblings are healthy and well. His children are healthy and well. There is no hereditary cancer or sickle cell in the family. He is not aware of any family history of substance use disorder, mental illness or addiction. * Social History: T obacco Use: T obacco Use/Smoking P atient is a c urrent smoker H ow often do you smoke cigarettes? e very day H ow many cigarettes a day do you smoke? 6 -10 H ow soon after you wake up do you smoke your first cigarette? 3 1-60 minutes A re you interested in quitting? N ot ready to quit A dditional Findings: Tobacco User L ight cigarette smoker ((1-9 cigs/day) H mitali was born in [place]. He has been for 15 years to [place]. They do not have any children. He has a daughter Laila who is healthy and well. * Medications: T akingTadalafil 10 MG Tablet TAKE 1 TABLET BY MOUTH EVERY DAY NEEDED Gabapentin 600 MG Tablet 1 tablet Orally three times a dayDULoxetine HCl 20 MG Capsule Delayed Release Particles TAKE 1 CAPSULE BY MOUTH TWICE A DAY FOR 30 DAYS Oral Medication List reviewed and reconciled with the patientTaking Tadalafil 10 MG Tablet TAKE 1 TABLET BY MOUTH EVERY DAY NEEDED Taking Gabapentin 600 MG Tablet 1 tablet Orally three times a dayTaking DULoxetine HCl 20 MG Capsule Delayed Release Particles TAKE 1 CAPSULE BY MOUTH TWICE A DAY FOR 30 DAYS Oral Medication List reviewed and reconciled with the patient * Allergies: N o Known Drug Allergyno[Allergies Verified] Objective: * Vitals: H t: 66, Wt: 187, BMI:30.18, BP: 130/68, HR: 89, Temp: 97.6, Wt-k.82. * Examination: G eneral Examination: GENERAL APPEARANCE: p leasant, well nourished, well developed, in no acute distress, calm and relaxed , obese , man. HEAD: a traumatic, normocephalic. EYES: e anthony, perrla, anicteric, conjugate. EARS: n ormal. NOSE: s eptum intact. ORAL CAVITY: n ormal, unremarkable. NECK/THYROID: n o jugular venous distention, no carotid bruit, thyroid normal. LYMPH NODES: n o enlarged lymph nodes,spleen normal. SKIN: n o suspicious lesions, anicteric. HEART: n o clicks, gallops, murmurs, or rubs, regular rhythm, S1, S2 normal, no s3, or vascular bruits. LUNGS: c lear to auscultation . BREASTS: no masses palpable bilaterally. ABDOMEN: b owel sounds normal, no ascites, no organomegaly, no mass , centripital obesity. RECTAL EXAM: n ot examined. MUSCULOSKELETAL: e xtremities unremarkable, no clubbing, cyanosis or edema. PERIPHERAL PULSES: n ormal. NEUROLOGIC: a lert and oriented, cranial nerves 2-12 grossly intact, deep tendon reflexes 2+ symmetrical, motor strength normal upper and lower extremities, sensory exam intact. PSYCH: a lert, oriented. Assessment: * Assessment: 1. I diopathic peripheral neuropathy - G60.9, He says he has had no benefit from the gabapentin or duloxetine.. I will see what the neurologist recommends tomorrow morning. There are several medications that could be tried .I have prescribed pregabalin. 2 . T obacco dependence - F17.200, I discussed with him the health consequences are continued smoking. I recommended he stop smoking immediately. I have offered to refer him to smoke [place], O2 the smoking cessation programs at the local hospital. He has agreed to consider this. 3 . O besity (BMI 30-39.9) - E66.9, He has gained 6 pounds since his last visit. We discussed diet and nutrition. We made a plan to lose weight at a rate of one half of a pound per week over body mass index is in the normal range. 4 . R ight anterior shoulder pain - M25.511, Continue under the care of the rehabilitation physician and orthopedic surgeon. Plan: * Treatment: 2. O thers Continue Tadalafil Tablet, 10 MG, TAKE 1 TABLET BY MOUTH EVERY DAY NEEDED. * Procedure Codes: * Preventive Medicine: Counseling: C are goal follow-up plan: Counseling for abnormal BMI given Y es Above Normal BMI Follow-up D ietary management education, guidance, and counseling, Dietary needs education, Exercise promotion: strength training, Exercise promotion: stretching, Feeding regime, Giving encouragement to exercise, Lifestyle education regarding diet, Nutrition / feeding management, Nutrition therapy, Prescribed activity/exercise education, Prescribed diet education, Prescribed dietary intake, Special diet education, Weight monitoring , Intervention, Order not done: Medical or Other reason not done S moking/Tobacco Use Patient counseled on the dangers of tobacco use and urged to quit. 0 02/27/2024 Patient Lifestyle Goals P atient wants to quit Treatment Goals C ut down by 1 cigarette a week, Set a quit date Barriers S tress, Social smoker Self-Management Plan M aramis a plan to cut down number of cigarettes over time and set a date to work towards quitting * Follow Up: 3 Weeks (Reason: ov) * Images: * Sign off status: Completed true * Provider: Dianne Talley MD Date: 0 02/27/2024 Generated for José Miguel sullivan/Shanon/Limaitting on: 1 09/12/2024 12:58 PM EST History and Physical Notes * HPI (History of Present Illness) Category Sub-Category Detail Notes COVID-19 Screening Questions Have you had any new onset fever, chills, cough, congestion, sore throat, shortness of breath, muscle aches?: No Have you been exposed to the virus withi n the last 10 days?: No Have you travelled internationally in last 10 days?: No Have you been exposed to COVID-19 in the past?: No Examination Category Sub-Category Detail Notes General Examination GENERAL APPEARANCE: pleasant , well nourished, well developed, in no acute distress, calm and relaxed , obese , man HEAD: atraumatic, normocep halic EYES: eomi, perrla, anicte duyen, conjugate EARS: normal NOSE: septum intact NECK/THYROID: no jugular venous di stention, no carotid bruit, thyroid normal HEART: no clicks, gallops, murmurs, or rubs, regular rhythm, S1, S2 normal, no s3, or vascular bruits LUNGS: clear to auscultatio n ABDOMEN: bowel sounds normal, no ascites, no organomegaly, no mass , centripital obesity NEUROLOGIC: alert and oriented, cranial nerves 2-12 grossly intact, deep tendon reflexes 2+ symmetrical, motor strength normal upper and lower extremities, sensory exam intact SKIN: no suspicious lesion s, anicteric PERIPHERAL PULSES: normal BREASTS: no masses palpable b ilaterally MUSCULOSKELETAL: extremities unremark able, no clubbing, cyanosis or edema LYMPH NODES: no enlarged lymph no jim,spleen normal RECTAL EXAM: not examined PSYCH: alert, oriented ORAL CAVITY: normal, unremarkable
--- OUTSIDE RECORDS SUMMARY | 2024-03-23 10:15 | XMS_ITS ---
Author Organization Kirk Talley III, MD Address [address] [place] [address] Care Team Providers Care Ampoule Sealer Name Role Phone Dr. Kirk Talley III Primary Care Provider Allergies Allergen (clinical drug ingredient) Drug/Non Drug Allergy documented on EMR Reaction Allergy Type Onset Date Status No Known Drug Allergy Unknown Drug Allergy Active REASON FOR VISIT follow up Medications Medication SIG (Take, Route, Fr equency, Duration) Notes Start Date End Date Status Pregabalin 75 MG 1 capsule in the serena ike 1 to 3 hours before bedtime Orally Once a day 02/27/2024 Active Tadalafil 10 MG TAKE 1 TABLET BY SELMA TH EVERY DAY NEEDED Active DULoxetine HCl 20 MG TAKE 1 CAPSULE BY M OUTH TWICE A DAY FOR 30 DAYS Oral Active Gabapentin 600 MG 1 tablet Orally thre e times a day 11/18/2023 Active Social History Tobacco Use: Social History [...] User Light cigarett e smoker ((1-9 cigs/day) Encounters Encounter Location Date Provider Diagnosis Kirk Talley III, MD [address] [place] [address] [place] [address] 03/23/2024 Kirk Talley Idiopathic periphera l neuropathy G60.9 Assessments Encounter Date Diagnosis (ICD Code) Assessment Notes Treatment Notes Treatment Clinical Notes 03/23/2024 Idiopathic peripheral neuropathy (ICD-10 - G60.9) He says he has had no benefit from the gabapentin or duloxetine.. I will see what the neurologist recommends tomorrow morning. There are several medications that could be tried .I have prescribed pregabalin. Plan Of Treatment Medication Medication Name Sig Start Date Stop Date Notes Pregabalin 75 MG 1 capsule in the serena ike 1 to 3 hours before bedtime Orally Once a day 02/27/2024 Tadalafil 10 MG TAKE 1 TABLET BY SELMA TH EVERY DAY NEEDED DULoxetine HCl 20 MG TAKE 1 CAPSULE BY M OUTH TWICE A DAY FOR 30 DAYS Oral Gabapentin 600 MG 1 tablet Orally three times a day 2023 Next Appt Details Provider Name:Kirk Amaralne , 07/27/2025 02:45:00 PM, [address] [place] [address], [address], [phone], Progress Notes * Adams DCMinoOB: 2 (64 yo M)Acc No.[id number]:03/23/2024 Progress Notes Patient: Russell MUNGUIA Provider: Dianne Talley MD :1960 A ge:63 Y S ex:Male Date:03/23/2024 Address:[address] [place], [place] [id number] Subjective: * Chief Complaints: * 1 . Follow up. * HPI: C OVID-19 Screening: Questions H ave you had any new onset fever, chills, cough, congestion, sore throat, shortness of breath, muscle aches? N o H ave you been exposed to the virus within the last 10 days? N o H ave you travelled internationally in the last 10 days? N o H ave you been exposed to COVID-19 in the past? N o * ROS: G eneral/Constitutional: pain o nly normal aches and pains. C hills d enies.?Fatigue a dmits. F ever d enies. E NT: Decreased hearing d enies. R espiratory: Cough d enies. C ardiovascular: Chest pain with exertion d enies. D yspnea on exertion?denies. S hortness of breath d enies. G astrointestinal: Constipation d enies. D ecreased appetite d enies.?Diarrhea d enies. H eartburn d enies. N ausea d enies. R ectal bleeding?denies. V omiting d enies. H ematology: bruising d enies. p etechiae d enies. S wollen glands n one have been noted. G enitourinary: Frequent urination d enies. M usculoskeletal: Muscle aches d enies. P ainful joints d enies. S ciatica d enies. W eakness d enies. S kin: Itching d enies. R brittani d enies. S kin lesion(s)?denies. N eurologic: Difficulty speaking d enies. D izziness d enies.?Headache d enies. L ow back pain d enies. P sychiatric: Depressed mood d enies. * Medical History: D upuytren's contracture, Poor dentition, Nearsighted, Overweight, Tobacco dependence, 2015, hepatitis C. * Surgical History: c olonoscopy 05/2017, Tendon repair Dupuytren's contracture left palm 2022. * Hospitalization/Major Diagno stic Procedure: D enies Past Hospitalization. * Family History: F ather: alive 83 [...] ((1-9 cigs/day) H mitali was born in [place]. He has been for 15 years to [facility]. They do not have any children. He has a daughter Laila who is healthy and well. * Medications: T aking Tadalafil 10 MG Tablet TAKE 1 TABLET BY MOUTH EVERY DAY NEEDED , Taking Gabapentin 600 MG Tablet 1 tablet Orally three times a day , Taking DULoxetine HCl 20 MG Capsule Delayed Release Particles TAKE 1 CAPSULE BY MOUTH TWICE A DAY FOR 30 DAYS Oral , Taking Pregabalin 75 MG Capsule 1 capsule in the evening 1 to 3 hours before bedtime Orally Once a day , stop date 09/23/2024, Medication List reviewed and reconciled with the patient * Allergies: N o Known Drug Allergy. Objective: * Vitals: * Examination: G eneral Examination: GENERAL APPEARANCE: p leasant, well nourished, well developed, in no acute distress, calm and relaxed. HEAD: a traumatic, normocephalic. EYES: e anthony, [...] sounds normal, no ascites, no organomegaly, no mass. RECTAL EXAM: n ot examined. MUSCULOSKELETAL: e xtremities unremarkable, no clubbing, cyanosis or edema. PERIPHERAL PULSES: n ormal. NEUROLOGIC: a lert and oriented, cranial nerves 2-12 grossly intact, deep tendon reflexes 2+ symmetrical, motor strength normal upper and lower extremities, sensory exam intact. PSYCH: a lert, oriented. Assessment: * Assessment: 1. I diopathic peripheral neuropathy - G60.9 N otes :He says he has had no benefit from the gabapentin or duloxetine.. I will see what the neurologist recommends tomorrow morning. There are several medications that could be tried .I have prescribed pregabalin. Plan: * Treatment: 2. O thers Continue Tadalafil Tablet, 10 MG, TAKE 1 TABLET BY MOUTH EVERY DAY NEEDED. * Images: * The named appointment provid er may or may not be the originator of this progress note, and it is not deemed complete until electronically signed by the appointment provider. Sign off status: Pending * Provider: Dianne Talley MD Date: 0 03/23/2024 Generated for José Miguel sullivan/Shanon/Dominga on: 09/12/2024 12:59 PM EST History and Physical Notes * HPI (History of Present Illness) Category Sub-Category Detail Notes COVID-19 Screening Questions Have you had any new onset fever, chills, cough, congestion, sore throat, shortness of breath, muscle aches?: No Have you been exposed to the virus withi n the last 10 days?: No Have you travelled internationally in e last 10 days?: No Have you been exposed to COVID-19 in the past?: No Examination Category Sub-Category Detail Notes General Examination GENERAL APPEARANCE: pleasant , well nourished, well developed, in no acute distress, calm and relaxed HEAD: atraumatic, normocep halic EYES: eomi, perrla, anicte duyen, conjugate EARS: normal NOSE: septum intact NECK/THYROID: no jugular venous di stention, no carotid bruit, thyroid normal HEART: no clicks, gallops, murmurs, or rubs, regular rhythm, S1, S2 normal, no s3, or vascular bruits LUNGS: clear to auscultatio n ABDOMEN: bowel sounds normal, no ascites, no organomegaly, no mass NEUROLOGIC: alert and oriented, cranial nerves 2-12 [...]
--- OUTSIDE RECORDS SUMMARY | 2024-05-04 11:00 | XMS_ITS ---
Author Organization Kirk Talley III, MD Address [address] [place] [address] Care Team Providers Care Chalk Tester Name Role Phone Dr. Kirk Talley III Primary Care Provider [phone] Allergies Allergen (clinical drug ingredient) Drug/Non Drug Allergy documented on EMR Reaction Allergy Type Onset Date Status No Known Drug Allergy Unknown Drug Allergy Active Results Component Value Reference Range Notes URINE DIP STICK Reviewed date:05/04/2024 04:16:19 PM Interpretation: Performing Lab: Notes/Report: SG 1.030 1.005 - 1.025 pH 5.0 5.0 - 9.0 DENNY Negative Negative - NIT Negative Negative - PRO 15 Negative - Trace GLU Negative Negative - KET 5 Negative - UBG 0.2 0.1 - 1.8 AMAN 1 0.2 - 1.3 BLD Negative Negative - Reason For Referral Reason Consult and Treat Left Shoulder Pain Diagnosis 1 Left shoulder pain ( M25.512) Referral Organization Kirk Talley III, MD Referring Provider First Name Kirk Referring Provider Last Name Mayank Referring Provider Speciality Internal M edicine Referred Provider [facility], Orthopedic Surgeons Referred Provider Specialty Orthopedic S urgery General Notes D, Kim 05/27/2024 03:30:55 PM > Referral faxed on 05/11/24 Referral Priority Routine Referral Appointment Date 06/09/2024 REASON FOR VISIT Annual Exam Medications Medication SIG (Take, Route, Fr equency, Duration) Notes Start Date End Date Status DULoxetine HCl 20 MG TAKE 1 CAPSULE BY M OUTH TWICE A DAY FOR 30 DAYS Oral Active Tadalafil 10 MG TAKE 1 TABLET BY SELMA TH EVERY DAY NEEDED Active Social History Tobacco Use: Social History Observation Description Date Details (start date - stop date) Current Smoker NA - NA Sex Assigned At : Social History Observation Description Sex Assigned At Male Tobacco Use/Smoking Question Answer Notes Patient is a current smoker Tobacco Control (Standard) Question Answer Notes Tobacco use: Current smoker How often do you smoke cigarettes? Every day How many cigarettes a day do you smoke? 6-10 How soon after you wake up d o you smoke your first cigarette? After 60 minutes Are you interested in quitting? Not ready to arian t Additional Findings: Tobacco user Modera te cigarette smoker (10-19 cigs/day) AUDIT-C (Standard) Question Answer Notes Did you have a drink contain ing alcohol in the past year? Yes How often did you have six o r more drinks on one occasion in the past year? Less than monthly (1 point) How many drinks did you have on a typical day when you were drinking in the past year? 10 or more drinks (4 points) How often did you have a dri nk containing alcohol in the past year? Monthly or less (1 point) Points 6 Interpretation Positive Vital Signs Temperature 97.4 degrees Fahrenheit 05/04/20 24 Blood pressure systolic 128 mm Hg 05/04/20 24 Blood pressure diastolic 80 mm Hg 024 Heart Rate 71 /min 05/04/2024 Height 66 in 05/04/2024 Weight 183 lbs 05/04/2024 BMI 29.53 kg/m2 05/04/2024 Encounters Encounter Location Date Provider Diagnosis Kirk Talley III, MD [address] [place] [address] [place] [address] 05/04/2024 Kirk Talley Idiopathic periphera l neuropathy G60.9 ; Benign prostatic hyperplasia, unspecified whether lower urinary tract symptoms present N40.0 ; Tobacco dependence F17.200 ; Overweight E66.3 and Right anterior shoulder pain M25.511 Assessments Encounter Date Diagnosis (ICD Code) Assessment Notes Treatment Notes Treatment Clinical Notes 05/04/2024 Idiopathic peripheral neuropathy (ICD-10 - G60.9) He continues his relationship with the neurologist. He has been compliant with his medication. The burning discomfort in his feet is mild and he is able to conduct all of the activities of daily living. He has no difficulty with ambulation. 05/04/2024 Benign prostatic hyperplasia, unspecified whether lower urinary tract symptoms present (ICD-10 - N40.0) He rises from sleep once or twice a night to urinate. No change in his medication was made. We discussed lifestyle modifications he could make to reduce nocturia. 05/04/2024 Tobacco dependence (ICD-10 - F17.200) I discussed with him the health consequences are continued smoking. I recommended he stop smoking immediately. I have offered to refer him to smoke [place], O2 the smoking cessation programs at the local hospital. He has agreed to consider this. 05/04/2024 Overweight (ICD-10 - E66.3) He has lost 4 pounds since his last visit. His body mass index is 29.5. We discussed his diet and nutrition. We made a plan to lose weight at a rate of one half of a pound per week. 05/04/2024 Right anterior shoulder pain (ICD-10 - M25.511) Continue under the care of the rehabilitation physician and orthopedic surgeon. Plan Of Treatment Medication Medication Name Sig Start Date Stop Date Notes DULoxetine HCl 20 MG TAKE 1 CAPSULE BY M OUTH TWICE A DAY FOR 30 DAYS Oral Tadalafil 10 MG TAKE 1 TABLET BY SELMA TH EVERY DAY NEEDED Pending Test Test Name Order Date PROFILE, FASTING (COMPREHENSIVE METABOLI C) 05/04/2024 PSA, TOTAL 05/04/2024 CBC WITH AUTO DIFF 05/04/2024 Lipid Panel 05/04/2024 Referrals Referral Date Details 05/04/2024 05/04/2024, Consult and Treat Left Shoulder Pain, Orthopedic Surgeons [facility] Next Appt Details Follow Up: 6 Months, In six months, Reason: OV, Routine check-up Provider Name:Kirk Talley , 07/27/2025 02:45:00 PM, [address] [place] [address] [address], [place], [address], Progress Notes * Adams DCMinoOB: 2 (63 yo M)Acc No.[id number]:05/04/2024 Progress Notes Patient: Russell MUNGUIA Provider: Dianne Talley MD :1960 A ge:63 Y S ex:Male Date:05/04/2024 Address:[address] [place], [place] [address], [id number] Subjective: * Chief Complaints: * A nnual Exam * HPI: D epression Screening: PHQ-9 L ittle interest or pleasure in doing things?Not at all F eeling down, depressed, or hopeless N ot at all T rouble falling or staying asleep, or sleeping too much N ot at all F eeling tired or having little energy N ot at all P oor appetite or overeating N ot at all F eeling bad about yourself or that you are a failure, or have let yourself or your family down N ot at all T rouble concentrating on things, such as reading the newspaper or watching television N ot at all M oving or speaking so slowly that other people could have noticed; or the opposite, being so fidgety or restless that you have been moving around a lot more than usual N ot at all T houghts that you would be better off or of hurting yourself in some way N ot at all T otal Score 0 C OVID-19 Screening: Questions H ave you experienced fever, chills, cough, sore throat, shortness of breath, difficulty breathing, muscle aches, loss of taste or smell? N o H ave you been exposed to the virus within the last 10 days? N o H ave you travelled internationally in the last 10 days? N o H ave you been exposed to COVID-19 in the past? N o S HECTOR Questions: SDOH Questions I n the past year have you been worried about losing your housing? N o I n the past year have you or any family members you live with been unable to get any of the following when it was really needed? Check all that apply: N one * : The patient, a 63-year-old male, presented for his annual physical exam. He reported intermittent neuropathy in his legs, which sometimes feels like it's improving and other times worsens. He also mentioned a sensation of something moving around at the bottom of his face, which he described as a jumping or shaking sensation. The patient also reported occasional pain in his right shoulder, which comes and goes. He also mentioned that his left shoulder has been bothering him more recently. The patient reported that he sleeps through the night without waking up to urinate. He also mentioned that he smokes around 10 cigarettes a day, sometimes less. The patient's blood pressure was measured to be 128/80, and the doctor noted that he was a few pounds overweight.He declined the physicians for about routine annual digital rectal examination and prostate examination today. * ROS: G eneral/Constitutional: Admits p ain, o nly normal aches and pains. C hills?denies. F atigue a dmits. F ever d [...] Depressed mood d enies. * Medical History: * Surgical History: c olonoscopy 05/2017Tendon repair Dupuytren's contracture left palm 2022No history * Hospitalization/Major Diagno stic Procedure: N o history * Family History: F ather: alive 83 [...] substance use disorder, mental illness or addiction. Both parents have dementia. * Social History: T obacco Use: T obacco Use/Smoking P julien is a c urrent smoker Tobacco Control (Standard) T obacco use: C urrent smoker H ow often do you smoke cigarettes? E very day H ow many cigarettes a day do you smoke? 6 -10 H ow soon after you wake up do you smoke your first cigarette? A fter 60 minutes A re you interested in quitting? N ot ready to quit A dditional Findings: Tobacco user M oderate cigarette smoker (10-19 cigs/day) D rugs/Alcohol: D rugs H ave you used drugs other than those for medical reasons in the past 12 months? N o D rug/Alcohol: A FIOR-C (Standard) D id you have a drink containing alcohol in the past year? Y es H ow often did you have six or more drinks on one occasion in the past year? L ess than monthly (1 point) H ow many drinks did you have on a typical day when you were drinking in the past year? 1 0 or more drinks (4 points) H ow often did you have a drink containing alcohol in the past year? M onthly or less (1 point) P oints 6 I nterpretation P ositive H mitali was born in [place]. He has been for 15 years to [facility]. They do not have any children. He has a daughter Laila who is healthy and well. Smoking: The patient smokes around 10 cigarettes a day. * Medications: T akingTadalafil 10 MG Tablet TAKE 1 TABLET BY MOUTH EVERY DAY NEEDED DULoxetine HCl 20 MG Capsule Delayed Release Particles TAKE 1 CAPSULE BY MOUTH TWICE A DAY FOR 30 DAYS Oral Taking Tadalafil 10 MG Tablet TAKE 1 TABLET BY MOUTH EVERY DAY NEEDED Taking DULoxetine HCl 20 MG Capsule Delayed Release Particles TAKE 1 CAPSULE BY MOUTH TWICE A DAY FOR 30 DAYS Oral DiscontinuedGabapentin 600 MG Tablet 1 tablet Orally three times a day Pregabalin 75 MG Capsule 1 capsule in the evening 1 to 3 hours before bedtime Orally Once a day Medication List reviewed and reconciled with the patientDiscontinued Gabapentin 600 MG Tablet 1 tablet Orally three times a day Discontinued Pregabalin 75 MG Capsule 1 capsule in the evening 1 to 3 hours before bedtime Orally Once a day Medication List reviewed and reconciled with the patient * Allergies: N o Known Drug Allergyno[Allergies Verified] Objective: * Vitals: H t: 66, Wt: 183, BMI:29.53, BP: 128/80, HR: 71, Temp: 97.4, Wt-k.01. * Examination: G eneral Examination: GENERAL APPEARANCE: p leasant, well nourished, well developed, in no acute distress, calm and relaxed, overweight, man. HEAD: a traumatic, normocephalic. EYES: e [...] sounds normal, no ascites, no organomegaly, no mass, overweight. RECTAL EXAM: d eclined. MUSCULOSKELETAL: e xtremities unremarkable, no clubbing, cyanosis or edema, Mild discomfort to full range of motion right shoulder. PERIPHERAL PULSES: n ormal. NEUROLOGIC: a lert and oriented, cranial nerves 2-12 grossly intact, deep tendon reflexes 2+ symmetrical, motor strength normal upper and lower extremities, sensory exam intact. PSYCH: a lert, oriented, cognitive function intact, cooperative with exam, good eye contact, speech clear, thought process logical, goal directed. ? Assessment: * Assessment: 1. I diopathic peripheral neuropathy - G60.9 (Primary) N otes :He continues his relationship with the neurologist. He has been compliant with his medication. The burning discomfort in his feet is mild and he is able to conduct all of the activities of daily living. He has no difficulty with ambulation. 2 . B enign prostatic hyperplasia, unspecified whether lower urinary tract symptoms present - N40.0 N otes :He rises from sleep once or twice a night to urinate. No change in his medication was made.? We discussed lifestyle modifications he could make to reduce nocturia. 3 . T obacco dependence - F17.200 N otes :I discussed with him the health consequences are continued smoking. I recommended he stop smoking immediately. I have offered to refer him to smoke [place], O2 the smoking cessation programs at the local hospital. He has agreed to consider this. 4 . O verweight - E66.3 N otes :He has lost 4 pounds since his last visit. His body mass index is 29.5. We discussed his diet and nutrition. We made a plan to lose weight at a rate of one half of a pound per week. 5 . R ight anterior shoulder pain - M25.511 N otes :Continue under the care of the rehabilitation physician and orthopedic surgeon. Plan: * Treatment: 2. B enign prostatic hyperplasia, unspecified whether lower urinary tract symptoms present L AB: PROFILE, FASTING (COMPREHENSIVE METABOLIC) L AB: PSA, TOTAL L AB: CBC WITH AUTO DIFF L AB: Lipid Panel 3. O thers Continue Tadalafil Tablet, 10 MG, TAKE 1 TABLET BY MOUTH EVERY DAY NEEDED. ? Referral To:[facility] Surgeons [facility] Orthopedic Surgery Reason:Consult and Treat Left Shoulder Pain * Labs: * L ab: URINE DIP STICK (Collection Date & Time - 05/04/2024) Value Reference Range S G 1.030 1.005 - 1.025 * p H 5.0 5.0 - 9.0 * L EU Negative Negative - * N IT Negative Negative - * P RO 15 Negative - Trace * G WARREN Negative Negative - * K ET 5 Negative - * U BG 0.2 0.1 - 1.8 * B IL 1 0.2 - 1.3 * B LD Negative Negative - * Procedure Codes: 8 1002 URINE-NO MICRO * Preventive Medicine: Counseling: C are goal [...] of tobacco use and urged to quit. 1 Patient Lifestyle Goals P atient wants to quit Treatment Goals S et a quit date, Cut down by 1 cigarette a week Barriers S tress Self-Management Plan M aramis a plan to cut down number of cigarettes over time and set a date to work towards quitting * Follow Up: 6 Months, In six months (Reason: OV, Routine check-up) * Images: * Sign off status: Completed true * Provider: Dianne Talley MD Date: 1 Generated for José Miguel sullivan/Shanon/eTransmitting on: 09/12/2024 12:58 PM EST History and Physical Notes * HPI (History of Present Illness) Category Sub-Category Detail Notes Depression Screening PHQ-9 Little inte rest or pleasure in doing things: Not at all Feeling down, depressed, or hopeless: No t at all Trouble falling or staying asleep, or sl eeping too much: Not at all Feeling tired or having little energy: N ot at all Poor appetite or overeating: Not at all Feeling bad about yourself o r that you are a failure, or have let yourself or your family down: Not at all Trouble concentrating on thi ngs, such as reading the newspaper or watching television: Not at all Moving or speaking so slowly that other people could have noticed; or the opposite, being so fidgety or restless that you have been moving around a lot more than usual: Not at all Thoughts that you would be b sherry off or of hurting yourself in some way: Not at all Total Score: 0 COVID-19 Screening Questions Have you had any new onset fever, chills, cough, congestion, sore throat, shortness of breath, muscle aches?: No Have you been exposed to the virus withi n the last 10 days?: No Have you travelled internationally in e last 10 days?: No Have you been exposed to COVID-19 in the past?: No SDOH Questions SDOH Questions In the past year have you been worried about losing your housing?: No In the past year have you or any family members you live with been unable to get any of the following when it was really needed? Check all that apply:: None Examination Category Sub-Category Detail Notes General Examination GENERAL APPEARANCE: pleasant , well nourished, well developed, in no acute distress, calm and relaxed, overweight, man HEAD: atraumatic, normocep halic EYES: eomi, perrla, anicte duyen, conjugate EARS: normal NOSE: septum intact NECK/THYROID: no jugular venous di stention, no carotid bruit, thyroid normal HEART: no clicks, gallops, murmurs, or rubs, regular rhythm, S1, S2 normal, no s3, or vascular bruits LUNGS: clear to auscultatio n ABDOMEN: bowel sounds normal, no ascites, no organomegaly, no mass, overweight NEUROLOGIC: alert and oriented, cranial nerves 2-12 grossly intact, deep tendon reflexes 2+ symmetrical, motor strength normal upper and lower extremities, sensory exam intact SKIN: no suspicious lesion s, anicteric PERIPHERAL PULSES: normal BREASTS: no masses palpable b ilaterally MUSCULOSKELETAL: extremities unremark able, no clubbing, cyanosis or edema, Mild discomfort to full range of motion right shoulder LYMPH NODES: no enlarged lymph no jim,spleen normal RECTAL EXAM: declined PSYCH: alert, oriented, cog nitive function intact, cooperative with exam, good eye contact, speech clear, thought process logical, goal directed ORAL CAVITY: normal, unremarkable Consultation Request Notes Referral Date Referring Provider Referred Provider Not es 05/04/2024 Kirk Talley [facility], Orthopedic Surgeons Consult and Treat Left Shoulder Pain
--- OUTSIDE RECORDS SUMMARY | 2024-11-02 08:30 | XMS_ITS ---
Author Organization Kirk Talley III, MD Address [address] [place] [address] Care Team Providers Care Library Manager Name Role Phone Dr. Kirk Talley III Primary Care Provider [phone] Allergies Allergen (clinical drug ingredient) Drug/Non Drug Allergy documented on EMR Reaction Allergy Type Onset Date Status No Known Drug Allergy Unknown Drug Allergy Active REASON FOR VISIT Peripheral neuropathy, Right shoulder pain, Tobacco dependence, Benign prostatic hypertrophy, Hyperglycemia Medications Medication SIG (Take, Route, Fr equency, Duration) Notes Start Date End Date Status Amitriptyline HCl 25 MG Oral Active Pregabalin 75 MG TAKE 1 CAPSULE BY [facility] TWICE A DAY FOR 30 DAYS Oral Act zoran Tadalafil 10 MG 1 tablet Orally Once a day As needed Active Social History Tobacco Use: Social History Observation Description Date Details (start date - stop date) Current Smoker NA - NA Sex Assigned At : Social History Observation Description Sex Assigned At Male Tobacco Control (Standard) Question Answer Notes Tobacco use: Current smoker How often do you smoke cigarettes? Every day How many cigarettes a day do you smoke? 6-10 How soon after you wake up d o you smoke your first cigarette? After 60 minutes Are you interested in quitting? Not ready to arian t Additional Findings: Tobacco user Modera te cigarette smoker (10-19 cigs/day) Vital Signs Temperature 97.2 degrees Fahrenheit 11/03/19 25 Blood pressure systolic 136 mm Hg 11/03/19 25 Blood pressure diastolic 73 mm Hg 025 Heart Rate 78 /min 11/02/2024 Height 66 in 11/02/2024 Weight 183 lbs 11/02/2024 BMI 29.53 kg/m2 11/02/2024 Encounters Encounter Location Date Provider Diagnosis Kirk Talley III, MD [address] [place] [address] DR FELDER, [place] [phone] 11/02/2024 Kirk Talley Idiopathic periphera l neuropathy G60.9 ; Tobacco dependence F17.200 ; Overweight E66.3 ; Right anterior shoulder pain M25.511 ; Benign prostatic hyperplasia, unspecified whether lower urinary tract symptoms present N40.0 and Hyperglycemia R73.9 Assessments Encounter Date Diagnosis (ICD Code) Assessment Notes Treat ment Notes Treatment Clinical Notes 11/02/2024 Idiopathic peripheral neuropathy (ICD-10 - G60.9) He continues his relationship with the neurologist. He has been compliant with his medication. The burning discomfort in his feet is mild and he is able to conduct all of the activities of daily living. He has no difficulty with ambulation.He has been compliant with the amitriptyline and gabapentin regimen. 11/02/2024 Tobacco dependence (ICD-10 - F17.200) I discussed with him the health consequences are continued smoking. I recommended he stop smoking immediately. I have offered to refer him to smoke [place], O2 the smoking cessation programs at the local hospital. He has agreed to consider this. 11/02/2024 Overweight (ICD-10 - E66.3) . His body mass index is 29.5. We discussed his diet and nutrition. We made a plan to lose weight at a rate of one half of a pound per week. 11/02/2024 Right anterior shoulder pain (ICD-10 - M25.511) He will continue under the care of the rehabilitation physician and orthopedic surgeon. 11/02/2024 Benign prostatic hyperplasia, unspecified whether lower urinary tract symptoms present (ICD-10 - N40.0) He rises from sleep once or twice a night to urinate. No change in his medication was made. We discussed lifestyle modifications he could make to reduce nocturia. 11/02/2024 Hyperglycemia (ICD-10 - R73.9) His most recent fasting glucose is 128. She is manage with diet. I have ordered a hemoglobin A1c and microalbumin. Plan Of Treatment Medication Medication Name Sig Start Date Stop Date Notes Amitriptyline HCl 25 MG Oral Pregabalin 75 MG TAKE 1 CAPSULE BY [facility] TWICE A DAY FOR 30 DAYS Oral Tadalafil 10 MG 1 tablet Orally Once a day Next Appt Details Follow Up: 3 Months, Reason: ov Provider Name:Kirk Talley , 07/27/2025 02:45:00 PM, [address] [place] [address] [address], [place], [address], Progress Notes * Zoe DCOB: 2 (63 yo M)Acc No.[id number]:11/02/2024 Progress Notes Patient: Russell MUNGUIA Provider: Dianne Talley MD :1960 A ge:63 Y S ex:Male Date:11/02/2024 Address:[address] [place] [id number] Subjective: * Chief Complaints: * P eripheral neuropathyRight shoulder painTobacco dependenceBenign prostatic hypertrophyHyperglycemia * HPI: C OVID-19 Screening: Josafat jasmine came to the office today for routine follow-up several problems. He is now under the care of a neurologist for the bilateral lower extremity peripheral neuropathy. He is taking gabapentin. He is also taking amitriptyline. He is smoking 10 cigarettes per day. He complains of right anterior shoulder pain which is a normal complaint. He has been receiving a series of injections and physical therapy in that arm. He says his nocturia has resolved and he only occasionally once or twice a week rises from sleep once to urinate. Questions H ave you had any new onset fever, chills, cough, congestion, sore throat, shortness of breath, muscle aches? N o * ROS: G eneral/Constitutional: pain R ight anterior shoulder and both legs below knees.?Chills d enies. F atigue a dmits. F ever d enies. E NT: Decreased hearing d enies. R espiratory: Cough d enies. C ardiovascular: Chest pain with exertion d enies. D yspnea on exertion?denies. S hortness of breath d enies. G astrointestinal: Constipation o ccasional. D ecreased appetite d enies. D iarrhea d enies. H eartburn c ontrolled with medications. N ausea d enies. R ectal bleeding d enies. V omiting d enies. H ematology: bruising d enies. p etechiae d enies. S wollen glands n one have been noted. G enitourinary: Frequent urination o nce a night. M usculoskeletal: Muscle aches d enies. P ainful joints R ight shoulder. S ciatica d enies. W eakness d [...] aternal Grand Father: diagnosed with Cancer. M aternaalaina uncle: diagnosed with Cancer. 2 brother(s) - [...] Social History: T obacco Use: T obacco Control (Standard) T obacco use: C urrent [...] user M oderate cigarette smoker (10-19 cigs/day) H e was born in [place]. He has been for 15 years to [facility]. They do not have any children. He has a daughter Laila who is healthy and well. Smoking: The patient smokes around 10 cigarettes a day. * Medications: T akingTadalafil 10 MG Tablet 1 tablet Orally Once a day As neededPregabalin 75 MG Capsule TAKE 1 CAPSULE BY MOUTH TWICE A DAY FOR 30 DAYS Oral Amitriptyline HCl 25 MG Tablet Oral Taking Tadalafil 10 MG Tablet 1 tablet Orally Once a day As neededTaking Pregabalin 75 MG Capsule TAKE 1 CAPSULE BY MOUTH TWICE A DAY FOR 30 DAYS Oral Taking Amitriptyline HCl 25 MG Tablet Oral DiscontinuedDULoxetine HCl 20 MG Capsule Delayed Release Particles TAKE 1 CAPSULE BY MOUTH TWICE A DAY FOR 30 DAYS Oral Medication List reviewed and reconciled with the patientDiscontinued DULoxetine HCl 20 MG Capsule Delayed Release Particles TAKE 1 CAPSULE BY MOUTH TWICE A DAY FOR 30 DAYS Oral Medication List reviewed and reconciled with the patient * Allergies: N o Known Drug Allergyno[Allergies Verified] Objective: * Vitals: H t: 66, Wt: 183, BMI:29.53, BP: 136/73, HR: 78, Temp: 97.2, Wt-k.01. * Examination: G eneral Examination: GENERAL APPEARANCE: p leasant, well nourished, well developed, in no acute distress, calm and relaxed, overweight. HEAD: a traumatic, normocephalic. EYES: e anthony, [...] normal, no s3, or vascular bruits. LUNGS: , diminished breath sounds throughout, good air movement, no wheezes, rales, rhonchi. BREASTS: no masses palpable bilaterally. ABDOMEN: b owel sounds normal, no ascites, no organomegaly, no mass. RECTAL EXAM: n ot examined. MUSCULOSKELETAL: e xtremities unremarkable, no clubbing, cyanosis or edema, Pain to elevation above 180 degrees of the right shoulder. PERIPHERAL PULSES: n ormal. NEUROLOGIC: [...] daily living. He has no difficulty with ambulation.He has been compliant with the amitriptyline and gabapentin regimen. 2 . T obacco dependence - F17.200 N otes :I discussed with him the health consequences are continued smoking. I recommended he stop smoking immediately. I have offered to refer him to smoke [place], O2 the smoking cessation programs at the local hospital. He has agreed to consider this. 3 . O verweight - E66.3 N otes :. His body mass index is 29.5. We discussed his diet and nutrition. We made a plan to lose weight at a rate of one half of a pound per week. 4 . R ight anterior shoulder pain - M25.511 N otes :He will continue under the care of the rehabilitation physician and orthopedic surgeon. 5 . B enign prostatic hyperplasia, unspecified whether lower urinary tract symptoms present - N40.0 N otes :He rises from sleep once or twice a night to urinate. No change in his medication was made. We discussed lifestyle modifications he could make to reduce nocturia. 6 . H yperglycemia - R73.9 N otes :His most recent fasting glucose is 128. She is manage with diet. I have ordered a hemoglobin A1c and microalbumin. Plan: * Treatment: 2. O thers Continue Tadalafil Tablet, 10 MG, 1 tablet, Orally, Once a day As needed. * Procedure Codes: * Preventive Medicine: Counseling: [...] tobacco use and urged to quit. 0 11/02/2024 Patient Lifestyle Goals P atient wants to quit Treatment Goals S et a quit date, Cut down by 1 cigarette a week Barriers S tress, Social smoker Self-Management Plan M aramis a plan to cut down number of cigarettes over time and set a date to work towards quitting * Follow Up: 3 Months (Reason: ov) * Images: * Sign off status: Completed true * Provider: Dianne Talley MD Date: 0 11/02/2024 Generated for José Miguel sullivan/Shanon/Nealsmitting on: 1 09/12/2024 12:59 PM EST History and Physical Notes * HPI (History of Present Illness) Category Sub-Category Detail Notes COVID-19 Screening Questions Have you had any new onset fever, chills, cough, congestion, sore throat, shortness of breath, muscle aches?: No Examination Category Sub-Category Detail Notes General Examination GENERAL APPEARANCE: pleasant , well nourished, well developed, in no acute distress, calm and relaxed, overweight HEAD: atraumatic, normocep halic EYES: eomi, perrla, anicte duyen, conjugate EARS: normal NOSE: septum intact NECK/THYROID: no jugular venous di stention, no carotid bruit, thyroid normal HEART: no clicks, gallops, murmurs, or rubs, regular rhythm, S1, S2 normal, no s3, or vascular bruits LUNGS: , diminished breath sounds throughout, good air movement, no wheezes, rales, rhonchi ABDOMEN: bowel sounds normal, no ascites, no organomegaly, no mass NEUROLOGIC: alert and oriented, cranial nerves 2-12 grossly intact, deep tendon reflexes 2+ symmetrical, motor strength normal upper and lower extremities, sensory exam intact SKIN: no suspicious lesion s, anicteric PERIPHERAL PULSES: normal BREASTS: no masses palpable b ilaterally MUSCULOSKELETAL: extremities unremark able, no clubbing, cyanosis or edema, Pain to elevation above 180 degrees of the right shoulder LYMPH NODES: no enlarged lymph no jim,spleen normal RECTAL EXAM: not examined PSYCH: alert, oriented ORAL CAVITY: normal, unremarkable
--- OUTSIDE RECORDS SUMMARY | 2025-02-04 08:45 | XMS_ITS ---
Author Organization Kirk Talley III, MD Address [address] [place] [address] Care Team Providers Care Paving Machine Operator Name Role Phone Dr. Kirk Talley III Primary Care Provider [phone] Allergies Allergen (clinical drug ingredient) Drug/Non Drug Allergy documented on EMR Reaction Allergy Type Onset Date Status No Known Drug Allergy Unknown Drug Allergy Active REASON FOR VISIT Peripheral neuropathy, Tobacco dependence, Overweight, Benign prostatic hypertrophy Medications Medication SIG (Take, Route, Fr equency, Duration) Notes Start Date End Date Status Pregabalin 100 MG TAKE 1 CAPSULE BY [facility] TWICE A DAY FOR 30 DAYS Oral Active Gabapentin 300 MG 1 capsule Orally thr ee tilmes a day for 30 days 02/04/2025 Active Social History Tobacco Use: Social History [...] cigs/day) Vital Signs Temperature 97.2 degrees Fahrenheit 02/05/20 25 Blood pressure systolic 130 mm Hg 02/05/20 25 Blood pressure diastolic 72 mm Hg 025 Heart Rate 74 /min 02/04/2025 Height 66 in 02/04/2025 Weight 185 lbs 02/04/2025 BMI 29.86 kg/m2 02/04/2025 Encounters Encounter Location Date Provider Diagnosis Kirk Talley III, MD [address] [place] [address] [place] [address] 02/04/2025 Kirk Talley Idiopathic periphera l neuropathy G60.9 ; Tobacco dependence F17.200 ; Overweight E66.3 ; History of hepatitis C Z86.19 and Right anterior shoulder pain M25.511 Assessments Encounter Date Diagnosis (ICD Code) Assessment Notes Treatment Notes Treatment Clinical Notes 02/04/2025 Idiopathic peripheral neuropathy (ICD-10 - G60.9) The gabapentin was increased to 3 mg 3 times a day with a follow-up visit. 02/04/2025 Tobacco dependence (ICD-10 - F17.200) I discussed with him the health consequences are continued smoking. I recommended he stop smoking immediately. I have offered to refer him to smoke [place], O2 the smoking cessation programs at the local hospital. He has agreed to consider this. 02/04/2025 Overweight (ICD-10 - E66.3) . His body mass index is 29.5. We discussed his diet and nutrition. We made a plan to lose weight at a rate of one half of a pound per week. 02/04/2025 History of hepatitis C (ICD-10 - Z86.19) This problem is inactive at this time. 02/04/2025 Right anterior shoulder pain (ICD-10 - M25.511) He will continue under the care of the rehabilitation physician and orthopedic surgeon. Plan Of Treatment Medication Medication Name Sig Start Date Stop Date Notes Pregabalin 100 MG TAKE 1 CAPSULE BY [facility] TWICE A DAY FOR 30 DAYS Oral Gabapentin 300 MG 1 capsule Orally thr ee tilmes a day for 30 days 02/04/2025 Next Appt Details Follow Up: 1 Week, Reason: T [facility] Provider Name:Kirk Talley , 07/27/2025 02:45:00 PM, [address] [place] [address] [address], [place], [phone], Progress Notes * Zoe DCOB: 2 (64 yo M)Acc No.[id number]:02/04/2025 Progress Notes Patient: Dianne PALACIOSALEIDAMansiRussell Provider: Dianne Talley MD :1960 A ge:64 Y S ex:Male Date:02/04/2025 Address:[address] [place] [address] [facility] [id number] Subjective: * Chief Complaints: * P eripheral neuropathyTobacco dependenceOverweightBenign prostatic hypertrophy * HPI: C OVID-19 Screening: Josafat jasmine returns to the office for medical management on a scheduled visit. He has been to neurology because of the newly diagnosed peripheral neuropathy. He was begun on 100 mg of gabapentin twice a day. This has not relieved the pain at all. I increase the dose to 300 mg 3 times a day. He complains of pain primarily in his right foot but in both feet at all times. Questions H ave you had any new onset fever, chills, cough, congestion, sore throat, shortness of breath, muscle aches? N o * ROS: G eneral/Constitutional: pain B oth lower extremities right foot worse than left.?Chills d enies. F atigue a dmits. F [...] (10-19 cigs/day) H e was born in [place]. He has been for 15 years to [facility]. They do not have any children. He has a daughter Laila who is healthy and well. Smoking: The patient smokes around 10 cigarettes a day. * Medications: T akingPregabalin 100 MG Capsule TAKE 1 CAPSULE BY MOUTH TWICE A DAY FOR 30 DAYS Oral Taking Pregabalin 100 MG Capsule TAKE 1 CAPSULE BY MOUTH TWICE A DAY FOR 30 DAYS Oral DiscontinuedTadalafil 10 MG Tablet 1 tablet Orally Once a day As neededPregabalin 75 MG Capsule TAKE 1 CAPSULE BY MOUTH TWICE A DAY FOR 30 DAYS Oral Amitriptyline HCl 25 MG Tablet Oral Medication List reviewed and reconciled with the patientDiscontinued Tadalafil 10 MG Tablet 1 tablet Orally Once a day As neededDiscontinued Pregabalin 75 MG Capsule TAKE 1 CAPSULE BY MOUTH TWICE A DAY FOR 30 DAYS Oral Discontinued Amitriptyline HCl 25 MG Tablet Oral Medication List reviewed and reconciled with the patient * Allergies: N o Known Drug Allergyno[Allergies Verified] Objective: * Vitals: H t: 66, Wt: 185, BMI:29.86, BP: 130/72, HR: 74, Temp: 97.2, Wt-k.91. * Examination: G eneral Examination: GENERAL APPEARANCE: [...] bruits. LUNGS: , diminished breath sounds throughout, no wheezes, rales, rhonchi, good air movement. BREASTS: no masses palpable bilaterally. ABDOMEN: b owel sounds normal, no ascites, no organomegaly, no mass, overweight. RECTAL EXAM: n ot examined. MUSCULOSKELETAL: e xtremities unremarkable, no clubbing, cyanosis or edema. PERIPHERAL PULSES: n ormal. NEUROLOGIC: a lert and oriented, cranial nerves 2-12 grossly intact, deep tendon reflexes 2+ symmetrical, motor strength normal upper and lower extremities, sensory exam diminished in the lower extremities. PSYCH: a lert, oriented. Assessment: * Assessment: 1. I diopathic peripheral neuropathy - G60.9 (Primary) N otes :The gabapentin was increased to 3 mg 3 times a day with a follow-up visit. 2 . T obacco dependence - F17.200 N otes :I discussed with him the health consequences are continued smoking. I recommended he stop smoking immediately. I have offered to refer him to smoke [place], O2 the smoking cessation programs at the local hospital. He has agreed to consider this. 3 . O verweight - E66.3 N otes :. His body mass index is 29.5. We discussed his diet and nutrition. We made a plan to lose weight at a rate of one half of a pound per week. 4 . H istory of hepatitis C - Z86.19 N otes :This problem is inactive at this time. 5 . R ight anterior shoulder pain - M25.511 N otes :He will continue under the care of the rehabilitation physician and orthopedic surgeon. Plan: * Treatment: * Procedure Codes: * Preventive Medicine: Counseling: [...] tobacco use and urged to quit. 0 02/04/2025 Patient Lifestyle Goals P atient wants to quit Treatment Goals S et a quit date, Cut down by 1 cigarette a week Barriers S ocial smoker, Stress Self-Management Plan M aramis a plan to cut down number of cigarettes over time and set a date to work towards quitting * Follow Up: 1 Week (Reason: Telehealth) * Images: * Sign off status: Completed true * Provider: Dianne Talley MD Date: 0 02/04/2025 Generated for José Miguel sullivan/Shanon/eTransmitting on: 1 09/12/2024 12:59 PM EST History [...] bruits LUNGS: , diminished breath sounds throughout, no wheezes, rales, rhonchi, good air movement ABDOMEN: bowel sounds normal, no ascites, no organomegaly, no mass, overweight NEUROLOGIC: alert and oriented, cranial nerves 2-12 grossly intact, deep tendon reflexes 2+ symmetrical, motor strength normal upper and lower extremities, sensory exam diminished in the lower extremities SKIN: no suspicious lesion s, anicteric PERIPHERAL PULSES: normal BREASTS: no masses palpable b ilaterally MUSCULOSKELETAL: extremities unremark able, no clubbing, cyanosis or edema LYMPH NODES: no enlarged lymph no jim,spleen normal RECTAL EXAM: not examined PSYCH: alert, oriented ORAL CAVITY: normal, unremarkable
--- OUTSIDE RECORDS SUMMARY | 2025-02-14 04:15 | XMS_ITS ---
Author Organization Kirk Talley III, MD Address [address] [place] [address] [place] [address] Care Team Providers Care Floor Coverings Salesperson Name Role Phone Dr. Kirk Talley III Primary Care Provider Allergies Allergen (clinical drug ingredient) Drug/Non Drug Allergy documented on EMR Reaction Allergy Type Onset Date Status No Known Drug Allergy Unknown Drug Allergy Active REASON FOR VISIT Peripheral neuropathy, Neuropathic pain in both extremities, below knees Medications Medication SIG (Take, Route, Fr equency, Duration) Notes Start Date End Date Status Gabapentin 300 MG 1 capsule Orally thr ee tilmes a day 02/04/2025 Active Pregabalin 100 MG TAKE 1 CAPSULE BY [facility] TWICE A DAY FOR 30 DAYS Oral Act zoran Amitriptyline HCl 50 MG 1 tablet at bedt vish Orally Once a day for 30 days 02/14/2025 Active Social History Tobacco Use: Social History [...] te cigarette smoker (10-19 cigs/day) Vital Signs Height 66 in 02/14/2025 Weight 185 lbs 02/14/2025 BMI 29.86 kg/m2 02/14/2025 Encounters Encounter Location Date Provider Diagnosis Kirk Talley III, MD [address] [place] [address] [place] [address] 02/14/2025 Kirk Talley Idiopathic periphera l neuropathy G60.9 ; Tobacco dependence F17.200 ; Overweight E66.3 ; Right anterior shoulder pain M25.511 and Hyperglycemia R73.9 Assessments Encounter Date Diagnosis (ICD Code) Assessment Notes Treat ment Notes Treatment Clinical Notes 02/14/2025 Idiopathic peripheral neuropathy (ICD-10 - G60.9) The gabapentin was increased to 3 mg 3 times a day on his previous visit. I have added 50 mg of amitriptyline once a day to his regimen. 02/14/2025 Tobacco dependence (ICD-10 - F17.200) I discussed with him the health consequences are continued smoking. I recommended he stop smoking immediately. I have offered to refer him to smoke Kimberly, O2 the smoking cessation programs at the local hospital. He has agreed to consider this. 02/14/2025 Overweight (ICD-10 - E66.3) . His body mass index is 29.5. We discussed his diet and nutrition. We made a plan to lose weight at a rate of one half of a pound per week. 02/14/2025 Right anterior shoulder pain (ICD-10 - M25.511) He will continue under the care of the rehabilitation physician and orthopedic surgeon. 02/14/2025 Hyperglycemia (ICD-10 - R73.9) His most recent fasting glucose is 128. She is manage with diet. I have ordered a hemoglobin A1c and microalbumin. Plan Of Treatment Medication Medication Name Sig Start Date Stop Date Notes Gabapentin 300 MG 1 capsule Orally thr ee tilmes a day 02/04/2025 Pregabalin 100 MG TAKE 1 CAPSULE BY [facility] TWICE A DAY FOR 30 DAYS Oral Amitriptyline HCl 50 MG 1 tablet at bedt vish Orally Once a day for 30 days 02/14/2025 Next Appt Details Follow Up: 2 Weeks, Reason: Telehealth Provider Name:Kirk Talley , 07/27/2025 02:45:00 PM, [address] [place] [address] DAVID COLUNGA, [place]ABE[place]PO, [phone], Progress Notes * Zoe DCOB: 2 (64 yo M)Acc No.[id number]:02/14/2025 Patient: Russell MUNGUIA Provider: Dianne Talley MD :1960 A ge:64 Y S ex:Male Date:02/14/2025 Address:[address] [place], [place] [address], [id number] Subjective: * Chief Complaints: * P eripheral neuropathyNeuropathic pain in both extremities, below knees * HPI: * : This was a telehealth visit with the patient at home and me in my office. He gave consent for billing. On his last visit about 10 days ago. I increased the gabapentin. He reports she has had no change in the level of pain. He continues to interfere with a of his life.? It isn't painful numb feeling below his knees primarily in both feet. I have added amitriptyline to his regimen and given him an appointment to come back in 2 weeks. Other medications such as Dilantin and Tegretol and duloxetine will be considered as well. Telehealth L ocation of provider rendering services: { ...} [address] [facility] [address] [facility] [address] L ocation of patient: charles pina listed in demographics for today's visit P atient identification confirmed using: SUNDAY Jimenez ame T elehealth method: T elephone only. Patient not visible to care provider. C onsent: P atient verbally consented to treatment, Patient verbally consented to billing insurance company, Patient informed of any privacy concerns related to method of visit T otal time spent with patient (mins) 1 5 * ROS: G eneral/Constitutional: pain N europathic pain in both feet. C hills d enies. F atigue a [...] yrs, Diabetes mellitus, diagnosed with DM. M charleen Grand Father: diagnosed with Cancer. M charleen uncle: diagnosed with Cancer. 2 brother(s) - [...] user M oderate cigarette smoker (10-19 cigs/day) Josafat jasmine was born in [place]. He has been for 15 years to [facility]. They do not have any children. He has a daughter Laila who is healthy and well. Smoking: The patient smokes around 10 cigarettes a day. * Medications: T akingGabapentin 300 MG Capsule 1 capsule Orally three tilmes a day Pregabalin 100 MG Capsule TAKE 1 CAPSULE BY MOUTH TWICE A DAY FOR 30 DAYS Oral Medication List reviewed and reconciled with the patientTaking Gabapentin 300 MG Capsule 1 capsule Orally three tilmes a day Taking Pregabalin 100 MG Capsule TAKE 1 CAPSULE BY MOUTH TWICE A DAY FOR 30 DAYS Oral Medication List reviewed and reconciled with the patient * Allergies: N o Known Drug Allergyno[Allergies Verified] Objective: * Vitals: H t: 66, Wt: 185, BMI:29.86, Ht-cm: 167.64, Wt-k.91. Assessment: * Assessment: 1. I diopathic peripheral neuropathy - G60.9 (Primary) N otes :The gabapentin was increased to 3 mg 3 times a day on his previous visit. I have added 50 mg of amitriptyline once a day to his regimen. 2 . T obacco dependence - [...] rehabilitation physician and orthopedic surgeon. 5 . H yperglycemia - R73.9 N otes :His most recent fasting glucose is 128. She is manage with diet. I have ordered a hemoglobin A1c and microalbumin. Plan: * Treatment: * Procedure Codes: 9 8012 SYNCH AUDIO-ONLY EST SF 10 * Preventive Medicine: Counseling: C are goal [...] tobacco use and urged to quit. 0 02/14/2025 Patient Lifestyle Goals P atient wants to quit Treatment Goals S et a quit date, Cut down by 1 cigarette a week Barriers S tress Self-Management Plan M aramis a plan to cut down number of cigarettes over time and set a date to work towards quitting * Follow Up: 2 Weeks (Reason: Telehealth) * Images: * Sign off status: Completed true * Provider: Dianne Talley MD Date: 0 02/14/2025 Generated for José Miguel sullivan/Shanon/Dominga on: 1 09/12/2024 12:59 PM EST History and Physical Notes * HPI (History of Present Illness) Category Sub-Category Detail Notes Telehealth Location of [facility] rendering services:: {...} [address] [place] [address] Drive [address] [place] [id number] Location of patient:: address listed in demographics for today's visit Patient identification confirmed using:: Name, Telehealth method:: Telephone only. Deandra ent not visible to care provider. Consent:: Patient verbally c onsented to treatment, Patient verbally consented to billing insurance company, Patient informed of any privacy concerns related to method of visit Total time spent with patient (mins): 15
--- OUTSIDE RECORDS SUMMARY | 2025-02-16 08:45 | XMS_ITS ---
Author Organization Kirk Talley III, MD Address [address] [place] [address] Care Team Providers Care Psychologist Engineering Name Role Phone Dr. Kirk Talley III Primary Care Provider [phone] Allergies Allergen (clinical drug ingredient) Drug/Non Drug Allergy documented on EMR Reaction Allergy Type Onset Date Status No Known Drug Allergy Unknown Drug Allergy Active REASON FOR VISIT Peripheral neuropathy, Benign prostatic hypertrophy, Right anterior shoulder pain, Tobacco dependence Medications Medication SIG (Take, Route, Fr equency, Duration) Notes Start Date End Date Status Pregabalin 100 MG TAKE 1 CAPSULE BY [facility] TWICE A DAY FOR 30 DAYS Oral Act zoran Gabapentin 300 MG 1 capsule Orally thr ee tilmes a day 02/04/2025 Active Amitriptyline HCl 50 MG 1 tablet at bedt vish Orally Once a day 02/14/2025 Active Social History Tobacco Use: Social [...] cigarette smoker (10-19 cigs/day) Vital Signs Temperature 98.1 degrees Fahrenheit 02/17/20 25 Blood pressure systolic 125 mm Hg 02/17/20 25 Blood pressure diastolic 80 mm Hg 025 Heart Rate 73 /min 02/16/2025 Height 66 in 02/16/2025 Weight 185 lbs 02/16/2025 BMI 29.86 kg/m2 02/16/2025 Encounters Encounter Location Date Provider Diagnosis Kirk Talley III, MD [address] [place] [address] [place] [address] 02/16/2025 Kirk Talley Idiopathic periphera l neuropathy G60.9 ; Tobacco dependence F17.200 ; Overweight E66.3 ; History of hepatitis C Z86.19 and Right anterior shoulder pain M25.511 Assessments Encounter Date Diagnosis (ICD Code) Assessment Notes Treatment Notes Treatment Clinical Notes 02/16/2025 Idiopathic peripheral neuropathy (ICD-10 - G60.9) He is going to use duloxetine. I have begun him on amitriptyline. 02/16/2025 Tobacco dependence (ICD-10 - F17.200) I discussed with him the health consequences are continued smoking. I recommended he stop smoking immediately. I have offered to refer him to smoke Kimberly, O2 the smoking cessation programs at the local hospital. He has agreed to consider this. 02/16/2025 Overweight (ICD-10 - E66.3) . His body mass index is 29.5. We discussed his diet and nutrition. We made a plan to lose weight at a rate of one half of a pound per week. 02/16/2025 History of hepatitis C (ICD-10 - Z86.19) This problem is inactive at this time. 02/16/2025 Right anterior shoulder pain (ICD-10 - M25.511) He will continue under the care of the rehabilitation physician and orthopedic surgeon. Plan Of Treatment Medication Medication Name Sig Start Date Stop Date Notes Pregabalin 100 MG TAKE 1 CAPSULE BY [facility] TWICE A DAY FOR 30 DAYS Oral Gabapentin 300 MG 1 capsule Orally thr ee tilmes a day 02/04/2025 Amitriptyline HCl 50 MG 1 tablet at bedt vish Orally Once a day 02/14/2025 Next Appt Details Follow Up: As Scheduled, Cynthia son: Telehealth Provider Name:Kirk Talley , 07/27/2025 02:45:00 PM, [address] [place] [address] DAVID COLUNGA, [place], [phone], Progress Notes * Zoe DCOB: 2 (64 yo M)Acc No.[id number]:02/16/2025 Progress Notes Patient: Russell MUNGUIA Provider: Dianne Talley MD :1960 A ge:64 Y S ex:Male Date:02/16/2025 Address:[address] [place], [place] [id number] Subjective: * Chief Complaints: * P eripheral neuropathyBenign prostatic hypertrophyRight anterior shoulder painTobacco dependence * HPI: v : He returns for medical management. He did not have much benefit from the gabapentin and is now trying duloxetine. So far he continues to have debilitating pain and numbness in both feet and legs. He is applying for disability and brought forms with him today. His examination showed no acute changes today. * ROS: G eneral/Constitutional: pain N europathic pain in both legs below the knee, pain with walking. C hills d enies. F atigue a dmits. F ever d enies. ? E NT: Decreased hearing d enies. R [...] enies. S ciatica d enies. W eakness B oth legs, he reports an inability to walk more than a few feet without debilitating disabling pain. S kin: Itching d enies. R brittani [...] (10-19 cigs/day) H e was born in [place]. He has been for 15 years to [facility]. They do not have any children. He has a daughter Laila who is healthy and well. Smoking: The patient smokes around 10 cigarettes a day. * Medications: T akingPregabalin 100 MG Capsule TAKE 1 CAPSULE BY MOUTH TWICE A DAY FOR 30 DAYS Oral Gabapentin 300 MG Capsule 1 capsule Orally three tilmes a day Taking Pregabalin 100 MG Capsule TAKE 1 CAPSULE BY MOUTH TWICE A DAY FOR 30 DAYS Oral Taking Gabapentin 300 MG Capsule 1 capsule Orally three tilmes a day Not-Taking/PRNAmitriptyline HCl 50 MG Tablet 1 tablet at bedtime Orally Once a day Medication List reviewed and reconciled with the patientNot-Taking/PRN Amitriptyline HCl 50 MG Tablet 1 tablet at bedtime Orally Once a day Medication List reviewed and reconciled with the patient * Allergies: N o Known Drug Allergyno[Allergies Verified] Objective: * Vitals: H t: 66, Wt: 185, BMI:29.86, BP: 125/80, HR: 73, Temp: 98.1, Ht-cm: 167.64, Wt-k.91. * Examination: G eneral Examination: GENERAL APPEARANCE: p leasant, well nourished, well developed, in no acute distress, calm and relaxed: overweight: man. HEAD: a traumatic, normocephalic. EYES: e [...] sounds normal, no ascites, no organomegaly, no mass: overweight. RECTAL EXAM: n ot examined. MUSCULOSKELETAL: e xtremities unremarkable, no clubbing, cyanosis or edema. PERIPHERAL PULSES: n ormal. NEUROLOGIC: a lert and oriented, cranial nerves 2-12 grossly intact, deep tendon reflexes 2+ symmetrical, motor strength normal upper and lower extremities, sensory exam intact In the upper extremities and diminished in the lower extremities. PSYCH: a lert, oriented: mood depressed. ? Assessment: * Assessment: 1. I diopathic peripheral neuropathy - G60.9 (Primary) N otes :He is going to use duloxetine. I have begun him on amitriptyline. 2 . T obacco dependence - F17.200 [...] Follow-up D ietary management education, guidance, and counseling S moking/Tobacco Use Patient counseled on the dangers of tobacco use and urged to quit. 0 02/16/2025 Patient Lifestyle Goals P atient wants to quit Treatment Goals S et a quit date, Cut down by 1 cigarette a week Barriers S ocial smoker, Stress Self-Management Plan M aramis a plan to cut down number of cigarettes over time and set a date to work towards quitting * Follow Up: A s Scheduled (Reason: Telehealth) * Images: * Sign off status: Completed true * Provider: Dianne Talley MD Date: 0 02/16/2025 Generated for José Miguel sullivan/Shanon/Limaitting on: 1 09/12/2024 12:59 PM EST History and Physical Notes * Examination Category Sub-Category Detail Notes General Examination GENERAL APPEARANCE: pleasant , well nourished, well developed, in no acute distress, calm and relaxed: overweight: man HEAD: atraumatic, normocep halic EYES: eomi, perrla, anicte duyen, conjugate EARS: normal NOSE: septum intact NECK/THYROID: no jugular venous di stention, no carotid bruit, thyroid normal HEART: no clicks, gallops, murmurs, or rubs, regular rhythm, S1, S2 normal, no s3, or vascular bruits LUNGS: clear to auscultatio n ABDOMEN: bowel sounds normal, no ascites, no organomegaly, no mass: overweight NEUROLOGIC: alert and oriented, cranial nerves 2-12 grossly intact, deep tendon reflexes 2+ symmetrical, motor strength normal upper and lower extremities, sensory exam intact In the upper extremities and diminished in the lower extremities SKIN: no suspicious lesion s, anicteric PERIPHERAL PULSES: normal BREASTS: no masses palpable b ilaterally MUSCULOSKELETAL: extremities unremark able, no clubbing, cyanosis or edema LYMPH NODES: no enlarged lymph no jim,spleen normal RECTAL EXAM: not examined PSYCH: alert, oriented: moo d depressed ORAL CAVITY: normal, unremarkable
--- OUTSIDE RECORDS SUMMARY | 2025-03-01 12:00 | XMS_ITS ---
Author Organization Kirk Talley III, MD Address [address] [place] [address] [place] [address] Care Team Providers Care Motorcyles Final Inspector Name Role Phone Dr. Kirk Talley III Primary Care Provider REASON FOR VISIT Telehealth Social History Sex Assigned At : Social History Observation Description Sex Assigned At Male Encounters Encounter Location Date Provider Diagnosis Kirk Talley III, MD [address] [place] [address] [place] [address] 03/01/2025 Kirk Talley Plan Of Treatment Next Appt Details Provider Name:Kirk Talley , 07/27/2025 02:45:00 PM, [address] [place] [address] [place], [address], Progress Notes * Adams DCMinoOB: 2 (64 yo M)Acc No.[id number]:03/01/2025 Patient: Russell MUNGUIA Provider: Dianne Talley MD :1960 A ge:64 Y S ex:Male Date:03/01/2025 Address:[address] [place] [id number] Subjective: * Chief Complaints: * 1 . Telehealth. * Medical History: Objective: * Vitals: Assessment: Plan: * Treatment: * Images: * The named appointment provid er may or may not be the originator of this progress note, and it is not deemed complete until electronically signed by the appointment provider. Sign off status: Pending * Provider: Dinane Talley MD Date: 0 03/01/2025 Generated for José Miguel sullivan/Shanon/Dominga on: 1 09/12/2024 12:58 PM EST
--- OUTSIDE RECORDS SUMMARY | 2025-05-06 11:00 | XMS_ITS ---
Author Organization Kirk Talley III, MD Address [address] [place] [address] [place] [address] Care Team Providers Care Glass Installer Name Role Phone Dr. Kirk Talley III Primary Care Provider [phone] Allergies Allergen (clinical drug ingredient) Drug/Non Drug Allergy documented on EMR Reaction Allergy Type Onset Date Status No Known Drug Allergy Unknown Drug Allergy Active REASON FOR VISIT Annual Exam Medications Medication SIG (Take, Route, Fr equency, Duration) Notes Start Date End Date Status Pregabalin 100 MG TAKE 1 CAPSULE BY [facility] TWICE A DAY FOR 30 [...] user Modera te cigarette smoker (10-19 cigs/day) Encounters Encounter Location Date Provider Diagnosis Kirk Talley III, MD [address] [place] [address] [place] [address] 05/06/2025 Kirk Talley Idiopathic periphera l neuropathy G60.9 Assessments Encounter Date Diagnosis (ICD Code) Assessment Notes Treatment Notes Treatment Clinical Notes 05/06/2025 Idiopathic peripheral neuropathy (ICD-10 - G60.9) He is going to use duloxetine. I have begun him on amitriptyline. Plan Of Treatment Medication Medication Name Sig Start Date Stop Date Notes Pregabalin 100 MG TAKE 1 CAPSULE BY [facility] TWICE A DAY FOR 30 DAYS Oral Gabapentin 300 MG 1 capsule Orally thr ee tilmes a day 02/04/2025 Amitriptyline HCl 50 MG 1 tablet at bedt vish Orally Once a day 02/14/2025 Next Appt Details Provider Name:Kirk Talley , 07/27/2025 02:45:00 PM, [address] [place] [address] [address], [address], [place], [address], Progress Notes * Zoe DCOB: 2 (64 yo M)Acc No.[id number]:05/06/2025 Progress Notes Patient: Russell MUNGUIA Provider: Dianne Talley MD :1960 A ge:64 Y S ex:Male Date:05/06/2025 Address:[address] [place], [place] [phone] Subjective: * Chief Complaints: * 1 . Annual Exam. * HPI: C OVID-19 Screening: Questions H [...] contracture, Poor dentition, Nearsighted, Overweight, Tobacco dependence, 2014, hepatitis C, Neuropathy: The patient has been experiencing intermittent neuropathy in his legs.. * Surgical History: c olonoscopy 05/2017, Tendon repair Dupuytren's contracture left palm 2022, No history . * Hospitalization/Major Diagno stic Procedure: N o history . * Family History: F ather: alive 83 [...] (10-19 cigs/day) H e was born in [place]. He has been for 15 years to [facility]. They do not have any children. He has a daughter Laila who is healthy and well. Smoking: The patient smokes around 10 cigarettes a day. * Medications: Bianca hylton Pregabalin 100 MG Capsule TAKE 1 CAPSULE BY MOUTH TWICE A DAY FOR 30 DAYS Oral , Taking Gabapentin 300 MG Capsule 1 capsule Orally three tilmes a day , Taking Amitriptyline HCl 50 MG Tablet 1 tablet at bedtime Orally Once a day , Medication List reviewed and reconciled with the [...] peripheral neuropathy - G60.9 N otes :He is going to use duloxetine. I have begun him on amitriptyline. Plan: * Treatment: * Images: * The named appointment provid er may or may not be the originator of this progress note, and it is not deemed complete until electronically signed by the appointment provider. Sign off status: Pending * Provider: Dianne Talley MD Date: Generated for José Miguel sullivan/hSanon/eTconradsmitting on: 1 09/12/2024 01:00 PM EST History and Physical Notes * [...]
--- OUTSIDE RECORDS SUMMARY | 2025-05-11 05:54 | XMS_ITS ---
Author Organization Kirk Talley III, MD Address [address] [place] [address] [place] [address] Care Team Providers Care Community Health Coordinator Name Role Phone Dr. Kirk Talley III Primary Care Provider [phone] REASON FOR VISIT [employer] Forms Social History Sex Assigned At : Social History Observation Description Sex Assigned At Male Encounters Encounter Location Date Provider Diagnosis Kirk Talley III, MD [address] [place] [address] [place] [address] 05/11/2025 Kirk Talley Plan Of Treatment Next Appt Details Provider Name:Kirk Talley , 07/27/2025 02:45:00 PM, [address] [place] [address] [place], [address], Progress Notes * Zoe DCOB: (64 yo M)Acc No.[id number]:05/11/2025 Patient: Dianne SUZANNEMansi SHINlie :1960 A ge:64 Y S ex:Male Address:[address] [place] [address], [phone] * true * Date: Generated for José Miguel sullivan/Shanon/eTransmitting on: 09/12/2024 12:59 PM EST
--- NOTE | 2025-07-12 11:44 | A.OFFVIS_ITS ---
Intake Visit Reasons: followup Allergies No Known Allergies Allergy (Verified 07/12/25 11:48) Medication List - Last Reconciled 07/12/25 by Bruna Knutson CNP naproxen 500 mg PO BID 7 days pregabalin 100 mg PO BID HPI Comments Details: 64-year-old man with previous underlying tendency for alcohol use with mild axonal sensorimotor painful neuropathy. He has been without pregabalin for about 6 months due to insurance issues, which have since resolved. Pain in feet has significantly increased since being without medication. Pain was primarily to soles of feet, R > L, constant, and burning-type sensation. Feet were sensitive to touch, and even wearing socks bothered him. Sleep was not so good because of the pain. No falls. Pregabalin had helped with the pain previously. [facility] Medical History (Updated 07/12/25 @ 11:47 by Bruna Knutson CNP) Peripheral neuropathy Social History Patient Tobacco Use Status: Current everyday Tobacco user Tobacco use type: Cigarette Cigarettes Per Day: 10 Current occupational status: employed Current occupation: fabrication/ rt hand Review of Systems Const Denies chills, Denies daytime sleepiness, Denies difficulty sleeping, Denies fatigue, Denies fever(s), Denies frequent falls, Denies headache(s), Denies increased appetite, Denies poor appetite, Denies snoring, Denies weakness, Denies weight gain and Denies weight loss Eyes Denies loss of vision ENT Denies vertigo, Denies dizziness and Denies headache(s) Card Denies chest pain at rest, Denies chest pain with activity, Denies syncope, Denies leg edema and Denies palpitations Resp Denies snoring GI Denies constipation, Denies heartburn, Denies diarrhea and Denies nausea Denies urinary frequency, Denies urinary incontinence and Denies urinary urgency Musc Denies abnormal gait, Reports numbness and Reports tingling Skin/Breast Denies dry skin and Denies rash Neuro Denies abnormal gait, Denies vertigo, Denies dizziness, Denies syncope, Denies frequent falls, Denies headache(s), Denies lack of coordination, Denies loss of vision, Denies memory loss, Reports numbness, Denies restless legs, Denies seizure-like activity, Reports tingling, Denies paresthesias, Denies tremor(s) and Denies weakness Psych Denies anxiety, Denies depression, Denies auditory hallucinations, Denies memory loss, Denies visual hallucinations and Denies suicidal ideation Endo Denies fatigue and Denies palpitations Physical Exam Const Other: General Appearance:? normal, in no acute distress. Skin:? no rashes, no significant birthmarks. Heart:? S1, S2 normal, no murmurs. Lungs:? clear anteriorly and posteriorly. Extremities:? no edema. Psych:? alert, oriented, cognitive function intact, cooperative with exam. Neuro Other: Mental Status:?Normal attention, orientation, and flat affect.? Cranial Nerves:?Pupils are equal, round and reactive to light. External occular muscles are intact. Visual nelson are full. Face is symmetrical. Facial sen sations are normal. Tongue is midline. Palate elevates symmetrically. Shoulder shrugging is normal. Hearing to bedside conversation is normal. Sensory Exam:?....? Coordination:?No ataxia,?no titubation.? Gait Exam: Within normal limits. Cerebellar Signs:?Bwzfpa-[id number]-saci is okay. Extrapyramidal System:?No tremor, rigidity with normal facial expressions.? Pronator Drift:?Not present.? Involuntary Movements:?No tremors seen.? Speech:?Normal.? Results Reviewed Results Reviewed: EMG/NCS LEs at [facility] in November 2023: Mild axonal SM PN Assessment & Plan Assessment & Plan (1) Peripheral neuropathy: Code(s): G62.9 - Polyneuropathy, unspecified Category: Medical Qualifiers: Peripheral neuropathy type: polyneuropathy, unspecified Qualified Code(s): G62.9 - Polyneuropathy, unspecified Plan: He tried and failed duloxetine, amitriptyline, and gabapentin. Pain was better with pregabalin, but he has been without medication for about 6 months due to insurance issues. Without pregabalin, pain has significantly increased. Restart pregabalin 100mg 1 capsule twice a day, use/side effects reviewed. He was advised to start with 1 capsule at bedtime x1 week, then 1 capsule twice a day. Follow up in 6 weeks or sooner as needed. Plan Meds tried: duloxetine, gabapentin, amitriptyline. Medications: Changed From pregabalin 100 mg PO BID To pregabalin 100 mg PO BID 30 days 60 caps 2RF Refilled pregabalin 100 mg PO BID 60 caps 1RF 30 days Coding Level of Care Code Est Pt Level 4 (96248) Diagnoses Peripheral polyneuropathy G62.9 Peripheral neuropathy type: polyneuropathy, unspecified
--- OUTSIDE RECORDS SUMMARY | 2025-07-12 12:58 | XMS_ITS | Clinical Summary ---
Author Organization [employer] Address [address] [place] [address] Care Team Providers Care Pipe Fitter Welding Name Role Phone Unavailable Primary Care Provider [...] 2) 11/21/2011 COVID-19 Vaccine (5 - season) 2025 06/28/2022, 07/31/2021, 10/03/2020, Additional history exists Influenza [...]
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
--- OUTSIDE RECORDS SUMMARY | 2025-07-12 12:58 | XMS_ITS | Patient Health Record ---
Author Organization [facility] Address [address] [place] [address] Care Team Providers Care Mill And Coal Transport Operator Name Role Phone Noe Thurston Primary Care Provider Kirk Sutton [phone] Reason For Referral No Information Social History Tobacco Use: Social History Observation Description Date Details (start date - stop date) Current Smoker NA - NA Social History Drugs/Alcohol: Social Info Question Answer Notes Alcohol Screen Did you have a drink containing alcohol in the past year? Yes How often did you have a drink containing alcohol in the past year? Monthly or less (1 point) How many drinks did you have on a typical day when you were drinking in the past year? 5 or 6 drinks (2 points) How often did you have 6 or more drinks on one occasion in the past year? Less than monthly (1 point) Points 4 Interpretation Positive Tobacco Use: Social Info Question Answer Notes Tobacco Use/Smoking Patient is a current smoker How often do you smoke cigarettes? every day How many cigarettes a day do you smoke? 6-10 How soon after you wake up do you smoke your first cigarette? 6-30 minutes Are you interested in quitting? 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; no sig alcoh ol Problems Problem Type SNOMED Code ICD Code Onset Dates Problem Status W/U Status Risk Notes Problem Screening for malignant neoplasm of colon (066890798) Encounter for screening for malignant neoplasm of colon (Z12.11) Active confirmed Problem Preprocedural examination (431350476465625) Preprocedural examination (Z01.818) Active confirmed Problem Chronic hepatitis C (811866574) Chronic hepatitis C without hepatic coma (B18.2) Active confirmed Plan Of Treatment Future Test Test Name Order Date COLONOSCOPY 04/23/2017 Insurance Providers Payer Name Payer Address Payer Phone Subscriber Number Group Number Insured Name Patient Relationship to Insured Coverage Start Date Coverage End Date [facility] [employer] [facility] [address] [place] [address] [id number] JOSÉ GALVEZ Self - patient is the insured Medical (General) History Medical History History ICD Code Denies [place],DM,CVA,Lung disease,renal dise ase Hepatitis C Genotype 1--[place] [address] Perez with reported success--liver bx with Gr1/4 and Stage I/IV--treated with a regimen of ribavirin, Pegasys-interferon, and Incivek--Hep C viral load was nondetectable in 04/2017
--- OUTSIDE RECORDS SUMMARY | 2025-07-12 12:59 | XMS_ITS | Clinical Summary ---
Author Organization [facility] Address [address] [facility] [address] [place] [phone] Phone Care Team Providers Care Inlayer Name Role Phone Kirk Talley MD Primary Care Provider [phone] Allergies No known active allergies Medications ketorolac [...] HIV ONE-TIME SCREENING (18-6 5 YEARS) 11/21/1979 COLOGUARD 2006 COLONOSCOPY 2006 COLORECTAL CANCER SCREENING 2006 FIT TEST 2006 FOBT 2006 SIGMOIDOSCOPY 2006 VIRTUAL COLONOSCOPY 2006 PNEUMOCOCCAL VACCINES (50+ y ears) (1 of 1 - PCV) 11/21/2011 ZOSTER VACCINES (1 of 2) 11/21/2011 INFLUENZA VACCINE (#1) 2025 COVID-19 VACCINE (1 - 2024-2 6 season) 2025 RSV VACCINE (1 - 1-dose 75+ series) [...] topic Medical Devices Not on file Insurance [facility] LIMITED NETWORK HMO eRALOS[employer] LIMITED NETWORK HMO [employer]UE [employer] SELECT LIMITED NETWORK HMO eRALOS[employer]OSS [employer] LIMITED NETWORK HMO eRALOS[employer] LIMITED NETWORK HMO [employer] SELECT LIMITED NETWORK HMO BLUE [employer] LIMITED NETWORK HMO [employer] [facility] LIMITED NETWORK HMO LIMITED NETWORK HMO Care Teams Inlayer Relationship Specialty Start Date End Date Kirk Talley MD [address] [place] [address] [place] [address] PCP - General 04/09/22 Additional Source Comments The information contained in this document represents components of the legal health record. It is not the complete legal health record.[facility]
== END 2025-07-12 12:01 | disposition home or self-care (01) ==
LOC: HO.HSM 11:35
PROVIDERS: PCP Internal Medicine Medical Oncology; Visit Provider Registered Nurse
DX: G62.9 Polyneuropathy, unspecified (principal)
CPT/HCPCS: 99214